=== PATIENT | male | born 1970 | race Hispanic/Latino ===

== ENCOUNTER 2019-11-03 23:34 | Observation (INO) | payer SELFPAY ==
[2019-11-04] MEDS ORDERED: ASPIRIN 81 MG CHEWABLE TABLET ONE (00:01)
[2019-11-04] MEDS ORDERED: MAGNE/ALUM HYDROXD 30 ML UCUP ONE (00:02)
[2019-11-04] MEDS ORDERED: LIDOCAINE VISCOUS 2% SOLN 15 ML UDC ONE (00:02)
[2019-11-04] MEDS ORDERED: PANTOPRAZOLE 40 MG INJ ONE (00:02)
[2019-11-04 00:04] LABS: Absolute Lymphocytes (CBC) 0.8 K/uL (0.7-4.9); Basophils % 0.5 % (0-1.3); Lymphocytes % 10.9 % (15.3-44.8); RBC Red Blood Cell Count 5.16 M/uL (4.33-5.43)
[2019-11-04 00:16] LABS: Protime INR 1.07
[2019-11-04 00:28] LABS: ALT/SGPT 63 U/L (12-78); AST/SGOT 31 U/L (15-37); Albumin 3.8 g/dL (3.4-5.0); Alkaline Phosphatase 160 U/L (45-117); BUN Blood Urea Nitrogen 12 mg/dL (7-18); Bicarbonate 29 mmol/L (21-32); Bilirubin Direct < 0.1 mg/dL (0-0.2); Bilirubin Total 0.4 mg/dL (0.2-1.0); Glucose Level 125 mg/dL (74-106); Magnesium 2.1 mg/dL (1.8-2.4); NT PRO-BNP 24 pg/mL (<125); Potassium 3.6 mmol/L (3.5-5.1); Protein, Total 7.8 g/dL (6.4-8.2); Sodium Level 137 mmol/L (136-145); Troponin (Emerg Dept Use Only) < 0.02 ng/mL (0.0-0.045)
--- NOTE | 2019-11-04 00:42 | EDPHYS ---
Physician Documentation [facility] Name: Trung De Age: 49 yrs Sex: Male : 1970 Arrival Date: 11/03/2019 Time: 23:36 Bed 19 Private MD: ED Physician Steven Ward HPI: 11/03 23:50 This 49 yrs old Male presents to ER via Unassigned with complaints of Chest silvia Pain. 23:50 The patient or guardian reports chest pain that is located primarily in the substernal silvia area. Onset: just prior to arrival. The pain does not radiate. Associated signs and symptoms: The patient has no apparent associated signs or symptoms. The chest pain is described as burning, a pressure. Severity of pain: At its worst the pain was mild in the emergency department the pain is unchanged. The patient has experienced similar episodes in the past, several times. Historical: - Allergies: 23:58 hydrocodone; lp1 - Home Meds: 23:58 None [Active]; lp1 - PMHx: 23:58 Hyperlipidemia; Hypothyroidism; lp1 - PSHx: 23:58 None; lp1 - Immunization history:: Adult Immunizations up to date. - Coronavirus screen:: The patient has NOT traveled to [place], [place], or [place] in the past 14 days. The patient has NOT had contact with known/suspected case of Coronavirus?. - Family history:: not pertinent. - Social history:: Smoking status: Patient denies any tobacco usage or history of. - Ebola Screening: : No symptoms or risks identified at this time. ROS: 23:50 Constitutional: Negative for fever, chills, and weight loss, Eyes: Negative for injury, silvia pain, redness, and discharge, ENT: Negative for injury, pain, and discharge, Neck: Negative for injury, pain, and swelling, Respiratory: Negative for shortness of breath, cough, wheezing, and pleuritic chest pain, Back: Negative for injury and pain, : Negative for injury, bleeding, discharge, and swelling, MS/Extremity: Negative for injury and deformity, Skin: Negative for injury, rash, and discoloration, Neuro: Negative for headache, weakness, numbness, tingling, and seizure, Psych: Negative for depression, anxiety, suicide ideation, homicidal ideation, and hallucinations, Allergy/Immunology: Negative for hives, rash, and allergies, Endocrine: Negative for neck swelling, polydipsia, polyuria, polyphagia, and marked weight changes, Hematologic/Lymphatic: Negative for swollen nodes, abnormal bleeding, and unusual bruising. 23:50 Cardiovascular: Positive for chest pain, of the chest. Exam: 23:52 Constitutional: This is a well developed, well nourished patient who is awake, alert, silvia and in no acute distress. Head/Face: Normocephalic, atraumatic. Eyes: Pupils equal round and reactive to light, extra-ocular motions intact. Lids and lashes normal. Conjunctiva and sclera are non-icteric and not injected. Cornea within normal limits. Periorbital areas with no swelling, redness, or edema. ENT: Nares patent. No nasal discharge, no septal abnormalities noted. Tympanic membranes are normal and external auditory canals are clear. Oropharynx with no redness, swelling, or masses, exudates, or evidence of obstruction, uvula midline. Mucous membranes moist. Neck: Trachea midline, no thyromegaly or masses palpated, and no cervical lymphadenopathy. Supple, full range of motion without nuchal rigidity, or vertebral point tenderness. No Meningismus. Chest/axilla: Normal chest wall appearance and motion. Nontender with no deformity. No lesions are appreciated. Cardiovascular: Regular rate and rhythm with a normal S1 and S2. No gallops, murmurs, or rubs. Normal PMI, no JVD. No pulse deficits. Respiratory: Lungs have equal breath sounds bilaterally, clear to auscultation and percussion. No rales, rhonchi or wheezes noted. No increased work of breathing, no retractions or nasal flaring. Abdomen/GI: Soft, non-tender, with normal bowel sounds. No distension or tympany. No guarding or rebound. No evidence of tenderness throughout. Back: No spinal tenderness. No costovertebral tenderness. Full range of motion. Male : Normal genitalia with no discharge or lesions. Skin: Warm, dry with normal turgor. Normal color with no rashes, no lesions, and no evidence of cellulitis. MS/ Extremity: Pulses equal, no cyanosis. Neurovascular intact. Full, normal range of motion. Neuro: Awake and alert, GCS 15, oriented to person, place, time, and situation. Cranial nerves II-XII grossly intact. Motor strength 5/5 in all extremities. Sensory grossly intact. Cerebellar exam normal. Normal gait. Psych: Awake, alert, with orientation to person, place and time. Behavior, mood, and affect are within normal limits. 23:52 Musculoskeletal/extremity: DVT Exam: No signs of deep vein thrombosis. no pain, no silvia swelling, no tenderness, negative Homans' sign noted on exam, no appreciated bluish discoloration, no erythema, no increased warmth. Vital Signs: 23:56 BP 134 / 92; Pulse 107; Resp 20; Temp 98.4(O); Pulse Ox 98% on R/A; Weight 86.18 kg lp1 (R); Height 5 ft. 8 in. (172.72 cm); Pain 9/10; 11/04 01:00 BP 122 / 89; Pulse 98; Resp 18; Pulse Ox 96% ; wh 02:15 BP 108 / 79; Pulse 86; Resp 18; Pulse Ox 94% ; wh 11/03 23:56 Body Mass Index 28.89 (86.18 kg, 172.72 cm) lp1 MDM: 11/03 23:38 Patient medically screened. [facility] 23:52 Data reviewed: vital signs, nurses notes, lab test result(s), EKG, radiologic studies. [facility] 11/03 23:38 Order name: Basic Metabolic Panel [facility] 11/03 23:38 Order name: CBC with Diff [facility] 11/03 23:38 Order name: LFT's [facility] 11/03 23:38 Order name: Magnesium [facility] 11/03 23:38 Order name: NT PRO-BNP [facility] 11/03 23:38 Order name: PT-INR [facility] 11/03 23:38 Order name: Troponin (emerg Dept Use Only) [facility] 11/03 23:50 Order name: Lipase [facility] 11/04 00:13 Order name: CBC with Automated Diff; Complete Time: 00:19 EDMS 11/04 00:24 Order name: Protime (+INR); Complete Time: 00:36 EDMS 11/04 00:28 Order name: Lipase; Complete Time: 00:36 EDMS 11/04 00:29 Order name: Basic Metabolic Panel; Complete Time: 00:36 EDMS 11/04 00:29 Order name: Liver (Hepatic) Function; Complete Time: 00:36 EDMS 11/04 00:29 Order name: Troponin (Emerg Dept Use Only); Complete Time: 00:36 EDMS 11/03 23:38 Order name: XRAY Chest (1 view) [facility] 11/03 23:38 Order name: EKG; Complete Time: 23:39 [facility] 11/03 23:38 Order name: Cardiac monitoring; Complete Time: 23:58 [facility] 11/03 23:38 Order name: EKG - Nurse/Tech; Complete Time: 23:58 [facility] 11/03 23:38 Order name: IV Saline Lock; Complete Time: 23:58 [facility] 11/03 23:38 Order name: Labs collected and sent; Complete Time: 23:58 [facility] 11/03 23:38 Order name: O2 Per Protocol; Complete Time: 23:58 [facility] 11/03 23:38 Order name: O2 Sat Monitoring; Complete Time: 23:58 [facility] 11/04 00:29 Order name: NT PRO-BNP; Complete Time: 00:36 EDMS 11/04 00:29 Order name: Magnesium; Complete Time: 00:36 EDMS Administered Medications: 11/04 00:00 Drug: Aspirin Chewable Tablet 324 mg Route: PO; 02:32 Follow up: Response: No adverse reaction 00:03 Drug: ProTONIX 40 mg Route: IVP; Site: right antecubital; 02:32 Follow up: Response: No adverse reaction 00:05 Drug: GI Cocktail without - (Maalox Suspension 30 ml, Lidocaine Liquid 2 % 15 wh ml) Route: PO; 02:32 Follow up: Response: No adverse reaction Disposition: 11/04/19 00:40 Hospitalization ordered by Bharat Gil for Observation. Preliminary diagnosis are Functional dyspepsia, Other chest pain, Essential (primary) hypertension. - Bed requested for Telemetry/MedSurg (observation). - Status is Observation. - Condition is Stable. - Problem is new. - Symptoms have improved. Signatures: Dispatcher [employer] EDMS Steven Ward MD MD cha Pena, Laura, RN RN lp1 Sylvia Horowitz RN RN Edwina Woods Corrections: (The following items were deleted from the chart) 01:56 00:40 Hospitalization Ordered by Bharat Gil for Observation. Preliminary diagnosis cg is Functional dyspepsia; Other chest pain; Essential (primary) hypertension. Bed requested for Telemetry/MedSurg (observation). Status is Observation. Condition is Stable. Problem is new. Symptoms have improved. silvia 02:38 01:56 11/04/2019 00:40 Hospitalization Ordered by Bharat Gil for Observation. wh Preliminary diagnosis is Functional dyspepsia; Other chest pain; Essential (primary) hypertension. Bed requested for Telemetry/MedSurg (observation). Status is Observation. Condition is Stable. Problem is new. Symptoms have improved. cg
--- NOTE | 2019-11-04 00:42 | ER ---
Nurse's Notes [facility] Name: Trung De Age: 49 yrs Sex: Male : 1970 Arrival Date: 11/03/2019 Time: 23:36 Bed 19 Private MD: Diagnosis: Functional dyspepsia;Other chest pain;Essential (primary) hypertension Presentation: 11/03 23:55 Presenting complaint: Patient states: Chest pain that began this morning about 0530, lp1 comes and goes; states abdominal pain radiating to chest. Transition of care: patient was not received from another setting of care. Onset of symptoms was November 03, 2019. Risk Assessment: Do you want to hurt yourself or someone else? Patient reports no desire to harm self or others. Initial Sepsis Screen: Does the patient meet any 2 criteria? No. Patient's initial sepsis screen is negative. Does the patient have a suspected source of infection? No. Patient's initial sepsis screen is negative. Care prior to arrival: None. 23:55 Method Of Arrival: Ambulatory lp1 23:55 Acuity: DIVINE 3 lp1 Historical: - Allergies: 23:58 hydrocodone; lp1 - Home Meds: 23:58 None [Active]; lp1 - PMHx: 23:58 Hyperlipidemia; Hypothyroidism; lp1 - PSHx: 23:58 None; lp1 - Immunization history:: Adult Immunizations up to date. - Coronavirus screen:: The patient has NOT traveled to [place], [place], or [place] in the past 14 days. The patient has NOT had contact with known/suspected case of Coronavirus?. - Family history:: not pertinent. - Social history:: Smoking status: Patient denies any tobacco usage or history of. - Ebola Screening: : No symptoms or risks identified at this time. Screenin:56 Abuse screen: Denies threats or abuse. Denies injuries from another. Nutritional lp1 screening: No deficits noted. Tuberculosis screening: No symptoms or risk factors identified. Fall Risk None identified. Assessment: 11/04 00:05 General: Appears in no apparent distress. Behavior is calm, cooperative, appropriate wh for age. Pain: Complains of pain in abdomen Pain radiates to chest Pain currently is 8 out of 10 on a pain scale. Quality of pain is described as burning, Pain began 1 day ago. Neuro: Level of Consciousness is awake, alert, obeys commands, Oriented to person, place, time, situation, Appropriate for age. Cardiovascular: Heart tones S1 S2. Respiratory: Airway is patent Respiratory effort is even, unlabored, Respiratory pattern is regular, symmetrical, Breath sounds are clear bilaterally. GI: Abdomen is flat, non-distended, Abd is soft and non tender X 4 quads. : No signs and/or symptoms were reported regarding the genitourinary system. EENT: No signs and/or symptoms were reported regarding the EENT system. Derm: Skin is intact, is healthy with good turgor, Skin is pink, warm \T\ dry. normal. Musculoskeletal: Circulation, motion, and sensation intact. 01:10 Reassessment: Patient appears in no apparent distress at this time. No changes from previously documented assessment. Patient and/or family updated on plan of care and expected duration. Pain level reassessed. Patient is alert, oriented x 3, equal unlabored respirations, skin warm/dry/pink. 02:26 Reassessment: Patient appears in no apparent distress at this time. No changes from previously documented assessment. Patient and/or family updated on plan of care and expected duration. Pain level reassessed. Patient is alert, oriented x 3, equal unlabored respirations, skin warm/dry/pink. Patient states feeling better. Patient states symptoms have improved. Vital Signs: 11/03 23:56 BP 134 / 92; Pulse 107; Resp 20; Temp 98.4(O); Pulse Ox 98% on R/A; Weight 86.18 kg lp1 (R); Height 5 ft. 8 in. (172.72 cm); Pain 9/10; 0207 01:00 BP 122 / 89; Pulse 98; Resp 18; Pulse Ox 96% ; 02:15 BP 108 / 79; Pulse 86; Resp 18; Pulse Ox 94% ; 11/03 23:56 Body Mass Index 28.89 (86.18 kg, 172.72 cm) lp1 ED Course: 11/03 23:36 Patient arrived in ED. jg7 23:38 Steven Ward MD is Attending Physician. silvia 23:47 Edwina Woods is Primary Nurse. 23:47 Patient has correct armband on for positive identification. Placed in gown. Bed in low jp3 position. Call light in reach. Side rails up X 1. Side rails up X2. Warm blanket given. Verbal reassurance given. soil tester on. Pulse ox on. NIBP on. 23:47 EKG done, by ED staff, reviewed by Steven Ward MD. Patient maintains SpO2 saturation jp3 greater than 95% on room air. 23:50 Initial lab(s) drawn, by nc, sent to lab. Inserted saline lock: 20 gauge in right lp1 antecubital area, using aseptic technique. Blood collected. 23:56 Triage completed. lp1 23:58 Arm band placed on. lp1 02/07 00:39 Bharat Gil is Hospitalizing Provider. [facility] 02:29 No provider procedures requiring assistance completed. Patient admitted, IV remains in place. Administered Medications: 00:00 Drug: Aspirin Chewable Tablet 324 mg Route: PO; 02:32 Follow up: Response: No adverse reaction 00:03 Drug: ProTONIX 40 mg Route: IVP; Site: right antecubital; 02:32 Follow up: Response: No adverse reaction 00:05 Drug: GI Cocktail without - (Maalox Suspension 30 ml, Lidocaine Liquid 2 % 15 wh ml) Route: PO; 02:32 Follow up: Response: No adverse reaction Outcome: 00:40 Decision to Hospitalize by Provider. [facility] 02:29 Admitted to [facility] accompanied by [facility], via wheelchair, room 408, with chart, Report called to Danuta Bermudez 02:29 Condition: stable 02:29 Instructed on the need for admit. 02:38 Patient left the ED. Signatures: Steven Ward MD MD cha Pena, Laura, RN RN lp1 Edwina Woods Chandan Moore jp3 Sadie Moodyg7
--- NOTE | 2019-11-04 01:32 | P.HP ---
Certification for Inpatient Patient admitted to: Observation With expected LOS: <2 Midnights Practitioner: I am a practitioner with admitting privileges, knowledge of patient current condition, hospital course, and medical plan of care. Services: Services provided to patient in accordance with Admission requirements found in Title 42 Section 412.3 of the Code of Federal Regulations Patient History Date of Service: 11/04/19 Reason for admission: Epigastric pain and chest pain History of Present Illness: 49-year-old Mosotho-speaking gentleman with a history of hypercholesteremia and hypothyroidism presents to the emergency department with a complaint of epigastric pain of onset yesterday, maximum intensity 8/10, intermittent, squeezing and pressure like sensation, worse with movement, partially and transiently relieved with drinking water and GI cocktail given in the ED. Patient states he has had this type pain for about 5 years but states this time the pain is much severe with no relieving factors. His initial troponin in the ED is negative. EKG demonstrates sinus rhythm, no ischemic changes. Chest x-ray shows no acute finding. Patient is placed under observation for ACS rule out. Allergies hydrocodone Allergy (Verified 11/04/19 02:57) Shortness of breath; dizziness Home Medications: Thyroid Complex Glandular Supplement With Herbs 1 cap PO DAILY 11/04/19 - Past Medical/Surgical History -: Hypercholesteremia -: Hypothyroidism - Family History Mother -: Heart disease, Stroke Father -: Other (see notes) Notes: arthritis - Social History Smoking Status: Never smoker Alcohol use: No CD- Drugs: No Place of Residence: Home Review of Systems Other: General: No fever, no malaise, no unintentional weight loss. Eyes: No eye discharge, Respiratory: No cough, no shortness of breath. GI: No abdominal pain, no nausea no vomit, no constipation, no diarrhea. Genitourinary: No dysuria, no urinary frequency, no incontinence, no hematuria. Musculoskeletal: No joint pains, or joint swelling, no gait instability. Neurology: No headache, no asymmetric weakness, no problem with swallowing. Except as documented, all other systems reviewed and negative. Physical Examination - Physical Exam General: Alert, In no apparent distress, Oriented x3 HEENT: Normocephalic, Mucous membr. moist/pink Neck: Supple, JVD not distended Respiratory: Clear to auscultation bilaterally, Normal air movement Cardiovascular: No edema, Normal S1 S2, Other (Tachycardia) Capillary refill: <2 Seconds Gastrointestinal: Normal bowel sounds, Soft and benign, Non-distended, No tenderness Musculoskeletal: No swelling, No erythema Integumentary: No rashes, No tenderness/swelling Neurological: Normal speech, Normal strength at 5/5 x4 extr - Studies Laboratory Data (last 24 hrs) 11/03/19 23:50: Lipase 100 11/03/19 23:50: PT 12.6 H, INR 1.07 11/03/19 23:50: WBC 7.5, Hgb 15.1, Hct 45.0, Plt Count 233 11/03/19 23:50: Sodium 137, Potassium 3.6, BUN 12, Creatinine 1.04, Glucose 125 H, Magnesium 2.1, Total Bilirubin 0.4, AST 31, ALT 63, Alkaline Phosphatase 160 H Assessment and Plan - Problems (Diagnosis) (1) Chest pain Current Visit: Yes Status: Acute (2) GERD (gastroesophageal reflux disease) Current Visit: Yes Status: Acute (3) Hypothyroidism Current Visit: Yes Status: Acute (4) Hypercholesterolemia Current Visit: Yes Status: Acute - Plan Place under observation. Telemetry Trend troponin Nuclear stress test Protonix b.i.d. Check lipid profile Statins will be ordered based on lipid profile result. Patient states his Lipitor was just discontinued last month. GI followup as outpatient. - Advance Directives Does patient have a Living Will: No Does patient have a Durable POA for Healthcare: No
[2019-11-04] MEDS ORDERED: ACETAMINOPHEN 500 MG TAB PO PRN (02:42)
[2019-11-04] MEDS ORDERED: NITROGLYCERIN 0.4 MG/TAB SL PRN ×2 (02:42→02:50)
[2019-11-04] MEDS ORDERED: MORPHINE 4 MG/ML SYR IV PRN (02:42)
[2019-11-04 03:58] VITALS: BMI 28.9
[2019-11-04 05:02] LABS: HDL Cholesterol 50 mg/dL (40-60); LDL Cholesterol, Calculated 115 (<130); Troponin I < 0.02 ng/mL (0.0-0.045)
[2019-11-04] MEDS ORDERED: PANTOPRAZOLE 40MG TABLET PO SCH (07:30)
[2019-11-04] MEDS ORDERED: REGADENOSON 0.4 MG/5 ML SYR IV ONE (07:40)
[2019-11-04] MEDS ORDERED: ENOXAPARIN 40 MG/0.4 ML SQ SCH (09:00)
[2019-11-04 09:02] VITALS: O2SAT 96
--- NOTE | 2019-11-04 09:48 | RAD REPORT ---
EXAM DESCRIPTION: RAD - Chest Single View - 11/04/2019 12:03 am CLINICAL HISTORY: CHEST PAIN COMPARISON: CHEST SINGLE VIEW dated 09/26/2015; CHEST SINGLE VIEW dated 04/05/2014 TECHNIQUE: AP portable chest image was obtained 11/04/2019 12:03 am . FINDINGS: Lung volumes are reduced from comparison studies. This accentuates the baseline interstiti al pattern. No acute lung parenchymal process seen. Heart and vasculature are normal. No measurable p leural effusion and no pneumothorax. No acute bony abnormality seen. No acute aortic findings suspect ed. IMPRESSION: No acute cardiopulmonary process.
--- NOTE | 2019-11-04 11:15 | RAD REPORT ---
EXAM DESCRIPTION: NM - Rest Stress Cardiac Imaging - 11/04/2019 10:50 am CLINICAL HISTORY: Chest pain COMPARISON: None. TECHNIQUE: The patient was administered 10.9 mCi of Tc 99m Sestamibi prior to resting SPECT imaging of the heart. The patient was then administered 31.3 mCi of Tc 99m Sestamibi following exercise or ph armacologic stress. Multiplanar SPECT images were reviewed. FINDINGS: The end diastolic volume is 80 ml, the end systolic volume is 35 ml, and the ejection frac tion is 57 %. Physiologic distribution of the radiopharmaceutical through the myocardium is noted. No stress induce d ischemic defect is seen to suggest stress induced ischemia. No fixed defect is seen to suggest hibe rnating myocardium or scarred myocardium. Minimal fixed decrease in activity along the inferolateral wall of the base is believed to be attenuation artifact. IMPRESSION: No stress induced ischemia or other suspicious findings. Ventricular volumes and ejection fraction are normal range.
--- NOTE | 2019-11-04 11:36 | P.DS ---
Admission Date: 11/04/19 Discharge Date: 11/04/19 Disposition: ROUTINE DISCHARGE Discharge Condition: GOOD Reason for Admission: Epigastric pain and chest pain Brief History of Present Illness: History of Present Illness: 49-year-old Croatian-speaking gentleman with a history of hypercholesteremia and hypothyroidism presents to the emergency department with a complaint of epigastric pain of onset yesterday, maximum intensity 8/10, intermittent, squeezing and pressure like sensation, worse with movement, partially and transiently relieved with drinking water and GI cocktail given in the ED. Patient states he has had this type pain for about 5 years but states this time the pain is much severe with no relieving factors. His initial troponin in the ED is negative. EKG demonstrates sinus rhythm, no ischemic changes. Chest x-ray shows no acute finding. Patient is placed under observation for ACS rule out. Hospital Course: Patient with history of hypothyroidism admitted for atypical chest pain. On admission EKG and initial cardiac enzymes were negative. He was placed on telemetry under observation. There were no telemetry EKG changes. Serial set of cardiac enzyme remained negative. He underwent MANPREET nuclear medicine stress test with reported EF of 57% and no reversible ischemic changes. Patient's chest pain remained free. His lipid panel was borderline with cholesterol 207. Lifestyle modification changes was advice. Patient will be discharged home on PPI and recommended to follow up with his primary in 1 week. Vital Signs/Physical Exam: Temp Pulse Resp BP Pulse Ox 98.2 F 72 18 96/59 L 98 11/04/19 08:00 11/04/19 08:00 11/04/19 08:00 11/04/19 08:00 11/04/19 08:00 General: Alert, Oriented x3 HEENT: Atraumatic, Normocephalic Neck: Supple, 2+ carotid pulse no bruit Respiratory: Clear to auscultation bilaterally, Normal air movement Cardiovascular: No edema, Normal pulses, Regular rate/rhythm, Normal S1 S2 Gastrointestinal: Normal bowel sounds, Soft and benign, Non-distended Musculoskeletal: No clubbing, No swelling Integumentary: No rashes, No breakdown Laboratory Data at Discharge: WBC 7.5 K/uL (4.3-10.9) 11/03/19 23:50 Hgb 15.1 g/dL (13.6-17.9) 11/03/19 23:50 Hct 45.0 % (39.6-49.0) 11/03/19 23:50 Plt Count 233 K/uL (152-406) 11/03/19 23:50 PT 12.6 SECONDS (9.5-12.5) H 11/03/19 23:50 INR 1.07 11/03/19 23:50 Sodium 137 mmol/L (136-145) 11/03/19 23:50 Potassium 3.6 mmol/L (3.5-5.1) 11/03/19 23:50 BUN 12 mg/dL (7-18) 11/03/19 23:50 Creatinine 1.04 mg/dL (0.55-1.3) 11/03/19 23:50 Glucose 125 mg/dL (74-106) H 11/03/19 23:50 Magnesium 2.1 mg/dL (1.8-2.4) 11/03/19 23:50 Total Bilirubin 0.4 mg/dL (0.2-1.0) 11/03/19 23:50 AST 31 U/L (15-37) 11/03/19 23:50 ALT 63 U/L (12-78) 11/03/19 23:50 Alkaline Phosphatase 160 U/L (45-117) H 11/03/19 23:50 Troponin I < 0.02 ng/mL (0.0-0.045) 11/04/19 07:59 Triglycerides 210 mg/dL (<150) H 11/04/19 03:52 Cholesterol 207 mg/dL (<200) H 11/04/19 03:52 HDL Cholesterol 50 mg/dL (40-60) 11/04/19 03:52 Cholesterol/HDL Ratio 4.14 11/04/19 03:52 Lipase 100 U/L (73-393) 11/03/19 23:50 Home Medications: Pantoprazole [Protonix Tab*] 40 mg PO DAILY #30 tab 11/04/19 Thyroid Complex Glandular Supplement With Herbs 1 cap PO DAILY 11/04/19 New Medications: Pantoprazole [Protonix Tab*] 40 mg PO DAILY #30 tab Patient Discharge Instructions: follow with PCP in 1 week Diet: Regular Activity: Ad nadya Time spent managing pt's care (in minutes): 35
[2019-11-04 12:08] VITALS: BP 108/62; TEMP 97.8
--- NOTE | 2019-11-04 13:59 | TREADPHA ---
DX: CHEST PAIN Date of Study: 11/04/2019 Ht: 5 8 Wt: 190 lb 1.6 oz Consulting Physician: YUKI MEDICATIONS: TYLENOL, LOVENOX, NITROSTAT, PROTONIX, HIGH CHOLESTEROL MEDICATION, THYROID MEDICATION. HISTORY: 49 YEAR OLD MALE ADMITTED FOR CHEST PAIN. PATIENT DENIES PAIN AT TIME OF TESTING. PHYSICIAL EXAMINATION: RESTING B.P.: 148/88 RESTING H.R.: 82 RESTING EKG: NORMAL PROTOCOL: PHARMACOLOGIC EXERCISE TIME: 3:30 B.P. AT PEAK STRESS: 125/78 IMPRESSION: LEXISCAN STRESS PERFORMED. CARDIOLITE INJECTED PER PROTOCOL. NO SUPRAVENTRICULAR TACHYCARDIA, NO VENTRICULAR TACHYCARDIA, NO ARRHYTHMIA NOTED. PATIENT DENIED CHEST PAIN. PATIENT TOLERATED WELL. PLEASE SEE NUCLEAR MEDICINE REPORT. NON-DIAGNOSTIC ELECTROCARDIOGRAM WITH LEXISCAN STRESS.
--- NOTE | 2019-11-04 15:09 | EKG ---
Test Date: 2019-11-03 Test Time: 23:41:42 Tooth Inspector: DEV MEASUREMENT RESULTS: Intervals: Rate: 101 IL: 144 QRSD: 102 QT: 334 QTc: 433 [place]: P: 53 [place]: 144 QRS: 60 T: 14 INTERPRETIVE STATEMENTS: Sinus tachycardia Otherwise normal ECG Compared to ECG 09/26/2015 08:51:27 Sinus rhythm no longer present Electronically Signed On 11-04-19 15:07:47 PILOT TEACHER by José Miguel Elise
== END 2019-11-04 13:17 | disposition home or self-care (01) ==
LOC: ER 23:34 → ERHOLD 11-04 02:02 → 4TH 11-04 02:25
PROVIDERS: ADMIT Internal Medicine; ATTEND Internal Medicine
DX: R07.89 Other chest pain (principal); E78.00 Pure hypercholesterolemia, unspecified; E03.9 Hypothyroidism, unspecified; K21.9 Gastro-esophageal reflux disease without esophagitis
CPT/HCPCS: 36415; 71045; 78452; 80048; 80061; 80076; 83690; 83735; 83880; 84484; 85025; 85610; 93005; 93017; 94760; 96374; 99285; A9500; G0378; J1650; J2785

== ENCOUNTER 2019-11-16 04:03 | Inpatient (IN) | payer SELFPAY ==
[2019-11-16] MEDS ORDERED: NA CHLORIDE 0.9% 1,000 ML ONE ×2 (04:43→05:55)
[2019-11-16 04:51] LABS: Basophils % 0.2 % (0-1.3); Hematocrit 44.7 % (39.6-49.0); Lymphocytes % 7.9 % (15.3-44.8); MPV 8.3 fL (7.6-11.3); RBC Red Blood Cell Count 5.18 M/uL (4.33-5.43)
[2019-11-16 05:09] LABS: Albumin 3.7 g/dL (3.4-5.0); Bilirubin Direct 0.2 mg/dL (0-0.2); Bilirubin Total 0.6 mg/dL (0.2-1.0); Potassium 3.8 mmol/L (3.5-5.1); Protein, Total 7.8 g/dL (6.4-8.2)
[2019-11-16 05:19] LABS: Blood Morphology Comment NOTED (NOT SEEN); Hypochromasia 1+; Platelet Estimate ADEQ
--- NOTE | 2019-11-16 05:35 | ER ---
Nurse's Notes [facility] Name: Trung De Age: 49 yrs Sex: Male : 1970 Arrival Date: 11/16/2019 Time: 04:06 Bed External Waiting Private MD: Diagnosis: Abdominal tenderness;Diarrhea, unspecified;Elevated white blood cell count;Bandemia;Left sided colitis-diffuse Presentation: 11/16 04:23 Presenting complaint: Patient states: C/O diarrhea and abdominal cramping that started wh yesterday, denies nausea and vomiting. Transition of care: patient was not received from another setting of care. Onset of symptoms was November 16, 2019. Risk Assessment: Do you want to hurt yourself or someone else? Patient reports no desire to harm self or others. Initial Sepsis Screen: Does the patient meet any 2 criteria? No. Patient's initial sepsis screen is negative. Does the patient have a suspected source of infection? Yes: Acute abdominal pain. Care prior to arrival: None. 04:23 Method Of Arrival: Ambulatory 04:23 Acuity: DIVINE 3 Historical: - Allergies: 04:25 HYDROCODONE; - Home Meds: 04:25 pantoprazole 40 mg oral TbEC 1 tab once daily [Active]; - PMHx: 04:25 Hyperlipidemia; Hypothyroidism; GERD; - Immunization history:: Adult Immunizations up to date. - Coronavirus screen:: The patient has NOT traveled to [place] in the past 14 days. - Social history:: Smoking status: Patient/guardian denies using. - Family history:: not pertinent. - Ebola Screening: : Patient negative for fever greater than or equal to 101.5 degrees Fahrenheit, and additional compatible Ebola Virus Disease symptoms Patient denies exposure to infectious person. Screenin:26 Abuse screen: Denies threats or abuse. Denies injuries from another. Nutritional screening: No deficits noted. Tuberculosis screening: No symptoms or risk factors identified. Fall Risk None identified. Assessment: 04:26 General: Appears in no apparent distress. Behavior is calm, cooperative, appropriate wh for age. Pain: Complains of pain in abdomen Pain does not radiate. Pain currently is 6 out of 10 on a pain scale. Quality of pain is described as crampy, Pain began 1 day ago. Is intermittent. Neuro: Level of Consciousness is awake, alert, obeys commands, Oriented to person, place, time, situation, Appropriate for age. Cardiovascular: Heart tones S1 S2. Respiratory: Airway is patent Respiratory effort is even, unlabored, Respiratory pattern is regular, symmetrical. GI: Abdomen is flat, non-distended, Bowel sounds present X 4 quads. Abd is soft and non tender X 4 quads. Reports diarrhea. : No signs and/or symptoms were reported regarding the genitourinary system. EENT: No signs and/or symptoms were reported regarding the EENT system. Derm: Skin is intact, is healthy with good turgor, Skin is pink, warm \T\ dry. normal. Musculoskeletal: Circulation, motion, and sensation intact. 05:00 Reassessment: Patient appears in no apparent distress at this time. No changes from previously documented assessment. Patient and/or family updated on plan of care and expected duration. Pain level reassessed. Patient is alert, oriented x 3, equal unlabored respirations, skin warm/dry/pink. 06:25 Reassessment: Patient appears in no apparent distress at this time. No changes from previously documented assessment. Patient and/or family updated on plan of care and expected duration. Pain level reassessed. Patient is alert, oriented x 3, equal unlabored respirations, skin warm/dry/pink. MD at bedside explaining POC need for admit. 07:28 Reassessment: Patient appears in no apparent distress at this time. No changes from [facility] previously documented assessment. Patient and/or family updated on plan of care and expected duration. Pain level reassessed. Patient is alert, oriented x 3, equal unlabored respirations, skin warm/dry/pink. 07:44 Reassessment: Pt's oral temp 102.7, ERD notified, see MAR for orders. Admitting doctor shara Walker notified of pt vital signs, no new orders given, no sepsis workup needed at this time. Dr. Walker will see pt on the floor. Vital Signs: 04:26 BP 120 / 86; Pulse 112; Resp 18; Temp 98.2; Pulse Ox 100% ; Weight 84.37 kg; Height 5 wh ft. 8 in. (172.72 cm); Pain 6/10; 05:00 BP 123 / 78; Pulse 108; Resp 18; Pulse Ox 99% on R/A; wh 06:45 BP 140 / 86; Pulse 101; Resp 18; Pulse Ox 98% ; 07:28 BP 136 / 95; Pulse 112; Resp 17; Temp 102.7(O); Pulse Ox 95% ; jl7 04:26 Body Mass Index 28.28 (84.37 kg, 172.72 cm) ED Course: 03:59 Steven Ward MD is Attending Physician. silvia 04:06 Patient arrived in ED. ag3 04:21 Edwina Woods is Primary Nurse. 04:24 Triage completed. 04:28 Arm band placed on right wrist. 04:28 Patient has correct armband on for positive identification. Bed in low position. Call light in reach. Side rails up X 1. Pulse ox on. NIBP on. 04:28 Inserted saline lock: 20 gauge in right antecubital area, using aseptic technique. Blood collected. 05:33 Bharat Gil is Hospitalizing Provider. [facility] 06:22 XRAY Chest (1 view) In Process Unspecified. EDMS 07:44 No provider procedures requiring assistance completed. Patient admitted, IV remains in jl7 place. intact, No redness/swelling at site. Administered Medications: 04:37 Drug: NS 0.9% 1000 ml Route: IV; Rate: 1 bolus; Site: right antecubital; 06:52 Follow up: Response: No adverse reaction; IV Status: Completed infusion 05:56 Drug: NS 0.9% 1000 ml Route: IV; Rate: 125 ml/hr; Site: right antecubital; 06:51 Follow up: Response: No adverse reaction; IV Status: Infusion continued upon admission 05:58 Drug: Flagyl 500 mg Volume: 100 ml; Route: IVPB; Rate: 200 ml/hr; Infused Over: 30 wh mins; Site: right antecubital; 06:51 Follow up: Response: No adverse reaction; IV Status: Completed infusion 06:00 Drug: Pepcid 20 mg Route: IVP; Site: right antecubital; 06:50 Follow up: Response: No adverse reaction 06:52 Drug: levofloxacin 500 mg Volume: 100 ml; Route: IVPB; Infused Over: 60 mins; Site: right antecubital; 07:40 Drug: Motrin 800 mg Route: PO; jl7 08:22 Not Given (pt moved to the floor): Rocephin 1 grams IV at per protocol once; Given slow jl7 IV push per pharmacy instructions Outcome: 05:35 Decision to Hospitalize by Provider. silvia 07:44 Admitted to Tele accompanied by tech, via wheelchair, room 222, with chart, Report shara called to MICHAEL Barajas 07:44 Condition: stable 07:44 Discharge instructions given to patient, Instructed on the need for admit, Demonstrated understanding of instructions. 08:22 Patient left the ED. shara Signatures: Dispatcher [employer] Steven Amanda MD MD cha Leal, Jahala, RN RN jl7 Edwina Woods Alice ag3
--- NOTE | 2019-11-16 05:36 | EDPHYS ---
Physician Documentation [facility] Name: Trung De Age: 49 yrs Sex: Male : 1970 Arrival Date: 11/16/2019 Time: 04:06 Bed External Waiting Private MD: DORINA Physician Steven Ward HPI: 11/16 05:30 This 49 yrs old Male presents to ER via Ambulatory with complaints of Diarrhea.[facility] 05:30 The patient presents to the emergency department with diarrhea, abdominal pain, of the silvia right upper quadrant, left upper quadrant, right lower quadrant and left lower quadrant. Onset: The symptoms/episode began/occurred 3 day(s) ago. Possible causes: unknown. The symptoms are aggravated by nothing. The symptoms are alleviated by nothing. Associated signs and symptoms: The patient has no apparent associated signs or symptoms. Severity of symptoms: At their worst the symptoms were mild moderate in the emergency department the symptoms are unchanged. The patient has not experienced similar symptoms in the past. Historical: - Allergies: 04:25 HYDROCODONE; - Home Meds: 04:25 pantoprazole 40 mg oral TbEC 1 tab once daily [Active]; - PMHx: 04:25 Hyperlipidemia; Hypothyroidism; GERD; - Immunization history:: Adult Immunizations up to date. - Coronavirus screen:: The patient has NOT traveled to [place] in the past 14 days. - Social history:: Smoking status: Patient/guardian denies using. - Family history:: not pertinent. - Ebola Screening: : Patient negative for fever greater than or equal to 101.5 degrees Fahrenheit, and additional compatible Ebola Virus Disease symptoms Patient denies exposure to infectious person. ROS: 05:30 Constitutional: Negative for fever, chills, and weight loss, Eyes: Negative for injury, silvia pain, redness, and discharge, ENT: Negative for injury, pain, and discharge, Neck: Negative for injury, pain, and swelling, Cardiovascular: Negative for chest pain, palpitations, and edema, Respiratory: Negative for shortness of breath, cough, wheezing, and pleuritic chest pain, Back: Negative for injury and pain, : Negative for injury, bleeding, discharge, and swelling, MS/Extremity: Negative for injury and deformity, Skin: Negative for injury, rash, and discoloration, Neuro: Negative for headache, weakness, numbness, tingling, and seizure, Psych: Negative for depression, anxiety, suicide ideation, homicidal ideation, and hallucinations, Allergy/Immunology: Negative for hives, rash, and allergies, Endocrine: Negative for neck swelling, polydipsia, polyuria, polyphagia, and marked weight changes, Hematologic/Lymphatic: Negative for swollen nodes, abnormal bleeding, and unusual bruising. 05:30 Abdomen/GI: Positive for abdominal pain, diarrhea, of the right upper quadrant, left upper quadrant, right lower quadrant and left lower quadrant. Exam: 05:30 Constitutional: This is a well developed, well nourished patient who is awake, alert, silvia and in no acute distress. Head/Face: Normocephalic, atraumatic. Eyes: Pupils equal round and reactive to light, extra-ocular motions intact. Lids and lashes normal. Conjunctiva and sclera are non-icteric and not injected. Cornea within normal limits. Periorbital areas with no swelling, redness, or edema. ENT: Nares patent. No nasal discharge, no septal abnormalities noted. Tympanic membranes are normal and external auditory canals are clear. Oropharynx with no redness, swelling, or masses, exudates, or evidence of obstruction, uvula midline. Mucous membranes moist. Neck: Trachea midline, no thyromegaly or masses palpated, and no cervical lymphadenopathy. Supple, full range of motion without nuchal rigidity, or vertebral point tenderness. No Meningismus. Chest/axilla: Normal chest wall appearance and motion. Nontender with no deformity. No lesions are appreciated. Cardiovascular: Regular rate and rhythm with a normal S1 and S2. No gallops, murmurs, or rubs. Normal PMI, no JVD. No pulse deficits. Respiratory: Lungs have equal breath sounds bilaterally, clear to auscultation and percussion. No rales, rhonchi or wheezes noted. No increased work of breathing, no retractions or nasal flaring. Back: No spinal tenderness. No costovertebral tenderness. Full range of motion. Male : Normal genitalia with no discharge or lesions. Skin: Warm, dry with normal turgor. Normal color with no rashes, no lesions, and no evidence of cellulitis. 05:30 Abdomen/GI: Inspection: abdomen appears normal, Bowel sounds: normal, Palpation: moderate abdominal tenderness, in all quadrants, Liver: no appreciated palpable abnormalities, Hernia: not appreciated. Vital Signs: 04:26 BP 120 / 86; Pulse 112; Resp 18; Temp 98.2; Pulse Ox 100% ; Weight 84.37 kg; Height 5 wh ft. 8 in. (172.72 cm); Pain 6/10; 05:00 BP 123 / 78; Pulse 108; Resp 18; Pulse Ox 99% on R/A; wh 06:45 BP 140 / 86; Pulse 101; Resp 18; Pulse Ox 98% ; wh 07:28 BP 136 / 95; Pulse 112; Resp 17; Temp 102.7(O); Pulse Ox 95% ; jl7 04:26 Body Mass Index 28.28 (84.37 kg, 172.72 cm) wh MDM: 04:00 Patient medically screened. [facility] 05:33 Data reviewed: vital signs, nurses notes, lab test result(s), EKG, radiologic studies, [facility] CT scan, plain films, ultrasound. 11/16 04:12 Order name: Basic Metabolic Panel [facility] 11/16 04:12 Order name: CBC with Diff; Complete Time: 05:26 [facility] 11/16 04:12 Order name: Creatinine for Radiology; Complete Time: 05:26 [facility] 11/16 04:12 Order name: Hepatic Function; Complete Time: 05:26 [facility] 11/16 04:12 Order name: Lipase; Complete Time: 05:26 [facility] 11/16 04:12 Order name: Occult Blood [facility] 11/16 04:12 Order name: Stool Culture [facility] 11/16 04:12 Order name: Fecal Leukocyte Stain [facility] 11/16 04:13 Order name: Basic Metabolic Panel; Complete Time: 05:26 [facility] 11/16 05:18 Order name: Manual Differential; Complete Time: 05:26 [facility] 11/16 05:30 Order name: Magnesium; Complete Time: 06:52 [facility] 11/16 05:30 Order name: NT PRO-BNP; Complete Time: 06:52 [facility] 11/16 05:30 Order name: PT-INR; Complete Time: 06:52 [facility] 11/16 05:30 Order name: Troponin (emerg Dept Use Only); Complete Time: 06:52 [facility] 11/16 04:12 Order name: IV Saline Lock; Complete Time: 04:37 [facility] 11/16 04:12 Order name: Labs collected and sent; Complete Time: 04:37 [facility] 11/16 05:30 Order name: CT Abd/Pelvis - IV Contrast Only [facility] 11/16 05:30 Order name: US Abdomen Limited [facility] 11/16 05:30 Order name: XRAY Chest (1 view) [facility] 11/16 05:30 Order name: EKG; Complete Time: 05:31 [facility] 11/16 05:30 Order name: Cardiac monitoring; Complete Time: 06:01 [facility] 11/16 05:30 Order name: EKG - Nurse/Tech; Complete Time: 06:01 [facility] 11/16 05:30 Order name: O2 Per Protocol; Complete Time: 06:02 [facility] 11/16 05:30 Order name: O2 Sat Monitoring; Complete Time: 06:02 [facility] Administered Medications: 04:37 Drug: NS 0.9% 1000 ml Route: IV; Rate: 1 bolus; Site: right antecubital; 06:52 Follow up: Response: No adverse reaction; IV Status: Completed infusion 05:56 Drug: NS 0.9% 1000 ml Route: IV; Rate: 125 ml/hr; Site: right antecubital; 06:51 Follow up: Response: No adverse reaction; IV Status: Infusion continued upon admission 05:58 Drug: Flagyl 500 mg Volume: 100 ml; Route: IVPB; Rate: 200 ml/hr; Infused Over: 30 wh mins; Site: right antecubital; 06:51 Follow up: Response: No adverse reaction; IV Status: Completed infusion 06:00 Drug: Pepcid 20 mg Route: IVP; Site: right antecubital; 06:50 Follow up: Response: No adverse reaction 06:52 Drug: levofloxacin 500 mg Volume: 100 ml; Route: IVPB; Infused Over: 60 mins; Site: right antecubital; 07:40 Drug: Motrin 800 mg Route: PO; jl7 08:22 Not Given (pt moved to the floor): Rocephin 1 grams IV at per protocol once; Given slow jl7 IV push per pharmacy instructions Disposition: 11/16/19 05:35 Hospitalization ordered by Bharat Gil for Inpatient Admission. Preliminary diagnosis are Abdominal tenderness, Diarrhea, unspecified, Elevated white blood cell count, Bandemia, Left sided colitis - diffuse. - Bed requested for Telemetry/MedSurg (Inpatient). - Status is Inpatient Admission. jl7 - Condition is Stable. - Problem is new. - Symptoms have improved. Signatures: Dispatcher [employer] EDMS Nella Hicks RN RN Steven Ward MD MD cha Leal, Jahala, RN RN [facility] Edwina Woods Corrections: (The following items were deleted from the chart) 05:36 05:35 Hospitalization Ordered by Bharat Gil for Inpatient Admission. Preliminary silvia diagnosis is Abdominal tenderness; Diarrhea, unspecified. Bed requested for Telemetry/MedSurg (Inpatient). Status is Inpatient Admission. Condition is Stable. Problem is new. Symptoms have improved. [facility] 06:33 05:36 11/16/2019 05:35 Hospitalization Ordered by [facility] for Inpatient mw Admission. Preliminary diagnosis is Abdominal tenderness; Diarrhea, unspecified; Elevated white blood cell count; Bandemia. Bed requested for Telemetry/MedSurg (Inpatient). Status is Inpatient Admission. Condition is Stable. Problem is new. Symptoms have improved. [facility] 07:39 06:33 11/16/2019 05:35 Hospitalization Ordered by [facility] for Inpatient [facility] Admission. Preliminary diagnosis is Abdominal tenderness; Diarrhea, unspecified; Elevated white blood cell count; Bandemia. Bed requested for Telemetry/MedSurg (Inpatient). Status is Inpatient Admission. Condition is Stable. Problem is new. Symptoms have improved. 08:22 07:39 11/16/2019 05:35 Hospitalization Ordered by [facility] for Inpatient [facility] Admission. Preliminary diagnosis is Abdominal tenderness; Diarrhea, unspecified; Elevated white blood cell count; Bandemia; Left sided colitis - diffuse. Bed requested for Telemetry/MedSurg (Inpatient). Status is Inpatient Admission. Condition is Stable. Problem is new. Symptoms have improved. silvia
[2019-11-16] MEDS ORDERED: Levofloxacin500mg IV 500 MG/100 ML BAG IV ONE (05:55)
[2019-11-16] MEDS ORDERED: FAMOTIDINE 20 MG/2 ML VIAL IV ONE (05:55)
[2019-11-16] MEDS ORDERED: METRONIDAZOLE 500mg IVPB 500 MG/100 ML BAG IV ONE (05:56)
[2019-11-16 06:12] LABS: Protime INR 1.18
--- NOTE | 2019-11-16 06:18 | P.HP ---
Certification for Inpatient Patient admitted to: Inpatient With expected LOS: >2 Midnights Practitioner: I am a practitioner with admitting privileges, knowledge of patient current condition, hospital course, and medical plan of care. Services: Services provided to patient in accordance with Admission requirements found in Title 42 Section 412.3 of the Code of Federal Regulations Patient History Date of Service: 11/16/19 Reason for admission: Diarrhea History of Present Illness: 49-year-old gentleman with a history of GERD presented to the emergency department with a complaint of multiple episodes of diarrhea and abdominal pain preceded by episodes of fever and chills. Patient was hospitalized about 2 weeks ago for persistent epigastric pain. Cardiac workup was done with nuclear stress test which was negative. Patient reports watery stools, no blood. He also described his pain as colicky and intermittent. No relieving factors. His liver enzymes are noted to be elevated, he has leukocytosis, tachycardia and meet criteria for sepsis. Patient is hospitalized for further evaluations and management of the diarrhea and elevated liver enzymes. Allergies hydrocodone Allergy (Verified 11/16/19 10:08) Shortness of breath; dizziness Home Medications: Pantoprazole [Protonix Tab*] 40 mg PO DAILY #30 tab 11/04/19 Thyroid Complex Glandular Supplement With Herbs 1 cap PO DAILY 11/04/19 - Past Medical/Surgical History Diabetic: No -: Hypercholesteremia -: Hypothyroidism -: left eye abscess I&D - Family History Mother -: Heart disease, Stroke Father -: Other (see notes) Notes: arthritis - Social History Alcohol use: No CD- Drugs: No Caffeine use: No Review of Systems Other: Except as documented, all other systems reviewed and negative. Physical Examination - Physical Exam General: Alert, In no apparent distress, Oriented x3 HEENT: Normocephalic, Mucous membr. moist/pink, Sclerae nonicteric Neck: Supple, JVD not distended Respiratory: Clear to auscultation bilaterally, Normal air movement Cardiovascular: No edema, Normal pulses, Normal S1 S2, No murmurs, Other ( Tachycardia) Capillary refill: <2 Seconds Gastrointestinal: Normal bowel sounds, Soft and benign, Non-distended, Tenderness (Mild mid abdomen tenderness.) Musculoskeletal: No swelling, No erythema Integumentary: No rashes, No erythema Neurological: Normal speech, Normal strength at 5/5 x4 extr, Cranial nerves 3- 12 intact - Studies Laboratory Data (last 24 hrs) 11/16/19 04:30: Creatinine 1.20 11/16/19 04:30: WBC 12.1 H D, Hgb 14.9, Hct 44.7, Plt Count 220 11/16/19 04:30: Sodium 136, Potassium 3.8, BUN 9, Creatinine 1.16, Glucose 137 H , Total Bilirubin 0.6, AST 172 H D, ALT 186 H D, Alkaline Phosphatase 162 H, Lipase 98 Microbiology Data (last 24 hrs): 11/16/19 04:12 Stool Stool Occult Blood (SHANTELLE) - Final SEO ENGINEER Assessment and Plan - Problems (Diagnosis) (1) Enteritis Current Visit: Yes Status: Acute (2) Elevated liver enzymes Current Visit: Yes Status: Acute (3) Hypothyroidism Current Visit: No Status: Chronic - Plan Admit to the medical floor Supportive measures with IV hydration. Start empiric IV Levaquin and Flagyl. Follow stool studies and stool culture. Obtain right upper quadrant sonogram. Monitor liver enzymes Checking lactic acid Obtain blood cultures. - Advance Directives Does patient have a Living Will: No Does patient have a Durable POA for Healthcare: No
[2019-11-16 06:19] LABS: Magnesium 1.8 mg/dL (1.8-2.4); NT PRO-BNP 28 pg/mL (<125); Troponin (Emerg Dept Use Only) < 0.02 ng/mL (0.0-0.045)
[2019-11-16] MEDS ORDERED: IBUPROFEN 400 MG TAB ONE (07:41)
[2019-11-16] MEDS ORDERED: NA CHLORIDE 0.9% 1,000 ML IV ONE (07:54)
[2019-11-16] MEDS ORDERED: ONDANSETRON 4 MG/2 ML VIAL IV PRN (08:22)
[2019-11-16] MEDS ORDERED: ACETAMINOPHEN 500 MG TAB PO PRN (08:22)
--- NOTE | 2019-11-16 08:23 | RAD REPORT ---
EXAM DESCRIPTION: US - Abdomen Exam Limited - 11/16/2019 7:08 am CLINICAL HISTORY: ABD PAIN COMPARISON: No comparisons FINDINGS: The gallbladder demonstrates no gallstones. No pericholecystic fluid or gallbladder wall t hickening. The common bile duct is normal measuring 3 mm. The liver demonstrates no findings of intrahepatic biliary dilatation. IMPRESSION: Unremarkable examination.
--- NOTE | 2019-11-16 09:04 | RAD REPORT ---
EXAM DESCRIPTION: RAD - Chest Single View - 11/16/2019 6:21 am CLINICAL HISTORY: ABDOMINAL DISTENTION Chest pain. COMPARISON: Chest Single View dated 11/03/2019; CHEST SINGLE VIEW dated 09/26/2015; CHEST SINGLE VIEW dated 04/05/2014 FINDINGS: Portable technique limits examination quality. The lungs are grossly clear. The heart is normal in size. No displaced fractures. IMPRESSION: No acute intrathoracic process suspected.
[2019-11-16 09:30] LABS: Urine Appearance CLEAR; Urine Bilirubin NEGATIVE (NEG); Urine Blood TRACE (NEG); Urine Color YELLOW; Urine Glucose NEGATIVE (NEG); Urine Protein NEGATIVE (NEG); Urine Specific Gravity >=1.030 (1.005-1.030); Urine Urobilinogen 0.2 mg/dL (0.2-1.0); Urine pH 6.5 (5.0-7.0)
[2019-11-16 09:32] LABS: Urine Microscopic Reflex ORDER UMIC
[2019-11-16] MEDS: ENOXAPARIN 40 MG/0.4 ML SQ SCH (09:52)
[2019-11-16] MEDS: D5 0.9 NS 1,000 ML IV SCH ×2 (09:52→17:07)
--- NOTE | 2019-11-16 10:19 | EKG ---
Test Date: 2019-11-16 Test Time: 06:15:19 Skip Hoist Engineer: JOESPH MEASUREMENT RESULTS: Intervals: Rate: 110 DE: 134 QRSD: 96 QT: 324 QTc: 438 [place]: P: 54 DE: 134 QRS: 59 T: 13 INTERPRETIVE STATEMENTS: Sinus tachycardia Otherwise normal ECG Compared to ECG 11/03/2019 23:41:42 No significant changes Electronically Signed On 11-16-19 10:18:56 PEER SPECIALIST by José Miguel Elise
[2019-11-16 10:24] VITALS: BMI 28.3
--- NOTE | 2019-11-16 10:28 | RAD REPORT ---
EXAM DESCRIPTION: Abdomen Pelvis W Contrast ADDENDUM #1 Corrected IMPRESSION: 1. Diffuse colitis from the cecum into the proximal sigmoid. No evidence of diverticular disease or p erforation. No abscess. 2. Mild fatty liver infiltration. 3.Multiple pulmonary nodules. Most severe: 3.0 mm solid pulmonary nodule detected on incomplete chest CT. No routine follow-up imaging is recommended. These guidelines do not apply to immunocompromised patients and patients with cancer. Follow up in pa tients with significant comorbidities as clinically warranted. For lung cancer screening, adhere to L navjot-RADS guidelines. Reference: Radiology. 2017; 284(1):228-43. Electronically signed by: Beryl Fletcher DO 11/16/2019 7:32 AM [employer]ILDLIFE VET[employer]IN[employer]IAN End of Addendum CT ABDOMEN AND PELVIS WITH CONTRAST. CLINICAL HISTORY: Diarrhea, abdominal cramping. COMPARISON: None. TECHNIQUE: Axial CT imaging of the abdomen and pelvis performed with intravenous contrast. Reformatt ed coronal and sagittal images reviewed. A dose reduction technique was utilized with automated exposure control according to patient size. FINDINGS: Mild bilateral lower lobe subpleural atelectasis. Heart is normal in size. There are two 3 mm nodules in the right middle lobe. There is no consolidation. Heart is normal in si ze. There is mild fatty liver infiltration. No liver mass or biliary dilatation. Normal gallbladder, sple en, pancreas, adrenal glands, and kidneys. Normal aorta and inferior vena cava caliber. No adenopathy . Mesenteric vessels are well-opacified. Normal stomach. The small bowel loops appear normal. The appendix is normal within the right hemipelv is. There is circumferential thickening of the colonic wall from the ascending colon to the proximal sigmoid. No obstruction. No free air. Slight pericolonic edema adjacent to the descending aorta. No ascites or free air. No mesenteric adenopathy. The bladder appears normal. Normal prostate. No pelvic free fluid. Prominent fat along the right sper matic cord. Normal lumbar lordosis. No subluxation. Intact bony pelvis. Normal hips. IMPRESSION: 1. Diffuse colitis from the cecum into the proximal sigmoid. No evidence of diverticular disease or perforation. No abscess. 2. Mild fatty liver infiltration. Electronically signed by: Beryl Fletcher DO 11/16/2019 7:29 AM [employer]IL[employer] VETERINARIAN Due to temporary technical issues with the PACS/Fluency reporting system, reports are being signed by the in house radiologist as a courtesy to ensure prompt reporting. The interpreting radiologist is f ully responsible for the content of the report.
[2019-11-16 10:46] LABS: Urine Bacteria <20 /HPF (NONE SEEN); Urine Culture Reflex Order NOT NEEDED; Urine RBC <5 /HPF (NONE SEEN)
[2019-11-16] MEDS: METRONIDAZOLE 500mg IVPB 500 MG/100 ML BAG IV SCH ×2 (12:30→17:05)
[2019-11-16] MEDS ORDERED: POTASSIUM CL SA 10 MEQ TAB PO ONE (16:00)
[2019-11-16] MEDS ORDERED: MAGNESIUM SULFATE 1 gm IVPB 1 GM/100 ML BAG IV ONE (16:00)
[2019-11-17] MEDS: METRONIDAZOLE 500mg IVPB 500 MG/100 ML BAG IV SCH ×3 (00:41→16:35)
[2019-11-17] MEDS: D5 0.9 NS 1,000 ML IV SCH ×2 (04:22→16:35)
[2019-11-17 05:37] LABS: Absolute Lymphocytes (CBC) 1.1 K/uL (0.7-4.9); Basophils % 0.5 % (0-1.3); Hematocrit 40.9 % (39.6-49.0); Lymphocytes % 16.2 % (15.3-44.8); MPV 8.4 fL (7.6-11.3); RBC Red Blood Cell Count 4.72 M/uL (4.33-5.43)
[2019-11-17] MEDS: Levofloxacin500mg IV 500 MG/100 ML BAG IV SCH (06:04)
[2019-11-17 06:10] LABS: Bilirubin Total 0.4 mg/dL (0.2-1.0); Magnesium 2.2 mg/dL (1.8-2.4); Phosphorus 2.1 mg/dL (2.5-4.9); Potassium 3.9 mmol/L (3.5-5.1); Protein, Total 6.6 g/dL (6.4-8.2)
[2019-11-17] MEDS ORDERED: POTASSIUM PHOS IN 0.9 % NACL 15 MMOL/250 ML BAG IV ONE (08:00)
[2019-11-17] MEDS: ENOXAPARIN 40 MG/0.4 ML SQ SCH (08:30)
--- NOTE | 2019-11-17 09:47 | P.PN ---
Subjective Date of Service: 11/17/19 Chief Complaint: Diarrhea Subjective: No new changes, Improving Review of Systems 10-point ROS is otherwise unremarkable Physical Examination - Vital Signs Temperature: 98.2 F Blood Pressure: 115/77 Pulse: 78 Respirations: 17 Pulse Ox (%): 99 - Physical Exam General: Alert, In no apparent distress HEENT: Atraumatic, Normocephalic Neck: Supple Respiratory: Clear to auscultation bilaterally, Normal air movement Cardiovascular: Normal pulses, Regular rate/rhythm Capillary refill: <2 Seconds Gastrointestinal: Soft and benign, Non-distended Musculoskeletal: No clubbing, No swelling Integumentary: No rashes Neurological: Normal speech, Normal strength at 5/5 x4 extr Lymphatics: No axilla or inguinal lymphadenopathy Urinary: Other (No bladder distention) External genitalia: Deferred Rectal: Deferred - Studies Microbiology Data (last 24 hrs): 11/16/19 09:16 Stool Fecal Leukocyte Stain - Final 11/16/19 09:16 Stool Occult Blood - Final Assessment & Plan - Problems (Diagnosis) (1) Elevated liver enzymes Current Visit: Yes Status: Acute (2) Enteritis Current Visit: Yes Status: Acute (3) Hypercholesterolemia Current Visit: No Status: Acute (4) Hypothyroidism Current Visit: No Status: Chronic Plan: Clinically better Frequency of diarrhea is better Supportive measures with IV hydration. On IV Levaquin and Flagyl. Right upper quadrant sonogram unremarkable Monitor liver enzymes serially Cultures negative so far Advance diet Possible DC In AM if afebrile and diarrhea is better . Discharge Plan: Home Plan to discharge in: 24 Hours Time Spent Managing Pts Care (In Minutes): 42
[2019-11-17 12:36] LABS: C.diff Antigen/Toxin Ag neg : Tox neg (NEG : NEG)
[2019-11-17 21:32] VITALS: O2SAT 97
[2019-11-18] MEDS: METRONIDAZOLE 500mg IVPB 500 MG/100 ML BAG IV SCH ×2 (01:04→08:58)
[2019-11-18] MEDS: D5 0.9 NS 1,000 ML IV SCH (05:06)
[2019-11-18] MEDS: Levofloxacin500mg IV 500 MG/100 ML BAG IV SCH (05:11)
[2019-11-18 06:01] LABS: BUN Blood Urea Nitrogen 7 mg/dL (7-18); Bicarbonate 27 mmol/L (21-32); Glucose Level 119 mg/dL (74-106); Phosphorus 2.9 mg/dL (2.5-4.9); Potassium 3.8 mmol/L (3.5-5.1); Sodium Level 142 mmol/L (136-145)
[2019-11-18] MEDS ORDERED: POTASSIUM CL SA 10 MEQ TAB PO ONE (07:33)
[2019-11-18 08:20] VITALS: BP 103/67; TEMP 97.2
[2019-11-18] MEDS: ENOXAPARIN 40 MG/0.4 ML SQ SCH (08:58)
--- NOTE | 2019-11-18 10:25 | P.DS ---
Admission Date: 11/16/19 Discharge Date: 11/18/19 Disposition: ROUTINE DISCHARGE Discharge Condition: GOOD Reason for Admission: Diarrhea - Problems (1) Elevated liver enzymes Status: Acute (2) Enteritis Status: Acute (3) Hypercholesterolemia Status: Acute (4) Hypothyroidism Status: Chronic Brief History of Present Illness: 49-year-old gentleman with a history of GERD presented to the emergency department with a complaint of multiple episodes of diarrhea and abdominal pain preceded by episodes of fever and chills. Patient was hospitalized about 2 weeks ago for persistent epigastric pain. Cardiac workup was done with nuclear stress test which was negative. Patient reports watery stools, no blood. He also described his pain as colicky and intermittent. No relieving factors. His liver enzymes are noted to be elevated, he has leukocytosis, tachycardia and meet criteria for sepsis. Patient is hospitalized for further evaluations and management of the diarrhea and elevated liver enzymes. Hospital Course: The patient was admitted and was started on IV Levaquin and Flagyl. Frequency of diarrhea is better Supportive measures with IV hydration. Right upper quadrant sonogram unremarkable Monitored liver enzymes serially and was trending down Cultures negative so far Advanced diet Possible DC In AM if afebrile and diarrhea is better The patient is being discharged home in a stable condition with advice to follow up with PCP in 1 week advice to recheck liver parameters in 1 week time Vital Signs/Physical Exam: Temp Pulse Resp BP Pulse Ox 97.2 F 65 18 103/67 97 11/18/19 08:00 11/18/19 08:00 11/18/19 08:00 11/18/19 08:00 11/18/19 08:00 General: Alert, In no apparent distress HEENT: Atraumatic, Normocephalic Neck: Supple Respiratory: Clear to auscultation bilaterally, Normal air movement Cardiovascular: No edema, Regular rate/rhythm Capillary refill: <2 Seconds Gastrointestinal: Soft and benign, W/out hepatosplenomegaly Musculoskeletal: No clubbing, No swelling Integumentary: No rashes Neurological: Normal gait, Normal speech, Normal strength at 5/5 x4 extr Lymphatics: No axilla or inguinal lymphadenopathy External genitalia: Deferred Laboratory Data at Discharge: WBC 6.8 K/uL (4.3-10.9) D 11/17/19 05:15 Hgb 13.7 g/dL (13.6-17.9) 11/17/19 05:15 Hct 40.9 % (39.6-49.0) 11/17/19 05:15 Plt Count 196 K/uL (152-406) 11/17/19 05:15 PT 13.8 SECONDS (9.5-12.5) H 11/16/19 05:45 INR 1.18 11/16/19 05:45 Sodium 142 mmol/L (136-145) 11/18/19 05:19 Potassium 3.8 mmol/L (3.5-5.1) 11/18/19 05:19 BUN 7 mg/dL (7-18) 11/18/19 05:19 Creatinine 0.86 mg/dL (0.55-1.3) 11/18/19 05:19 Glucose 119 mg/dL (74-106) H 11/18/19 05:19 Phosphorus 2.9 mg/dL (2.5-4.9) 11/18/19 05:19 Magnesium 2.2 mg/dL (1.8-2.4) 11/17/19 05:15 Total Bilirubin 0.4 mg/dL (0.2-1.0) 11/17/19 05:15 AST 63 U/L (15-37) H D 11/17/19 05:15 ALT 124 U/L (12-78) H 11/17/19 05:15 Alkaline Phosphatase 131 U/L (45-117) H 11/17/19 05:15 Lipase 98 U/L (73-393) 11/16/19 04:30 Home Medications: Pantoprazole [Protonix Tab*] 40 mg PO DAILY #30 tab 11/04/19 Thyroid Complex Glandular Supplement With Herbs 1 cap PO DAILY 11/04/19 Ciprofloxacin HCl [Cipro 500 MG Tablet] 500 mg PO BID #10 tab 11/18/19 metroNIDAZOLE [Flagyl] 500 mg PO Q8H 21 Days tablet 11/18/19 New Medications: Ciprofloxacin HCl [Cipro 500 MG Tablet] 500 mg PO BID #10 tab metroNIDAZOLE [Flagyl] 500 mg PO Q8H 21 Days tablet Time spent managing pt's care (in minutes): 39
== END 2019-11-18 11:40 | disposition home or self-care (01) | DRG 392 ==
LOC: ER 04:03 → ERHOLD 06:54 → 2ND 07:42 → OBSVTOIN 09:57 → 4TH 11-17 17:36
PROVIDERS: ADMIT Internal Medicine; ATTEND Family Medicine
DX: K52.9 Noninfective gastroenteritis and colitis, unspecified (principal); R74.8 Abnormal levels of other serum enzymes; E78.00 Pure hypercholesterolemia, unspecified; E03.9 Hypothyroidism, unspecified; K21.9 Gastro-esophageal reflux disease without esophagitis
CPT/HCPCS: 36415; 71045; 74177; 76705; 80048; 80053; 80076; 81003; 81015; 82274; 83605; 83690; 83735; 83880; 84100; 84484; 85025; 85610; 87040; 87045; 87046; 87324; 87449; 89055; 93005; 94760; 96361; 96365; 96375; 99285; G0378; J1650; J3475; J7030; J7042; Q9967

== ENCOUNTER 2021-03-09 03:58 | Emergency (ER) | payer SELFPAY ==
[2021-03-09] MEDS ORDERED: ONDANSETRON 4 MG/2 ML VIAL ONE (05:01)
[2021-03-09] MEDS ORDERED: NA CHLORIDE 0.9% 1,000 ML ONE (05:01)
[2021-03-09 05:07] LABS: Protime INR 1.03
[2021-03-09 05:17] LABS: Absolute Lymphocytes (CBC) 2.1 K/uL (0.7-4.9); Basophils % 0.6 % (0-1.3); Hematocrit 42.2 % (39.6-49.0); Lymphocytes % 27.6 % (15.3-44.8); MPV 8.4 fL (7.6-11.3); RBC Red Blood Cell Count 4.91 M/uL (4.33-5.43)
[2021-03-09 05:23] LABS: ALT/SGPT 46 U/L (12-78); AST/SGOT 30 U/L (15-37); Alkaline Phosphatase 139 U/L (45-117); BUN Blood Urea Nitrogen 13 mg/dL (7-18); Bicarbonate 26 mmol/L (21-32); Bilirubin Direct < 0.1 mg/dL (0-0.2); Bilirubin Total 0.2 mg/dL (0.2-1.0); Glucose Level 136 mg/dL (74-106); Lipase 65 U/L (73-393); Magnesium 2.2 mg/dL (1.8-2.4); NT PRO-BNP 36 pg/mL (<125); Potassium 3.7 mmol/L (3.5-5.1); Sodium Level 140 mmol/L (136-145); Troponin (Emerg Dept Use Only) < 0.02 ng/mL (0.0-0.045)
--- NOTE | 2021-03-09 06:32 | ER ---
Nurse's Notes [facility] Name: Trung De Age: 51 yrs Sex: Male : 1970 Arrival Date: 03/09/2021 Time: 04:02 Bed 6 Private MD: Diagnosis: Vertigo;Vomiting;Alcohol Consumption Presentation: 03/09 04:33 Chief complaint: Patient states: Reports he woke up this morning with the room ea spinning, pt reported nausea and vomiting. Pt reports he still feels like the room is spinning. Coronavirus screen: At this time, the client does not indicate any symptoms associated with coronavirus-19. Ebola Screen: No symptoms or risks identified at this time. Initial Sepsis Screen: Does the patient meet any 2 criteria? No. Patient's initial sepsis screen is negative. Does the patient have a suspected source of infection? No. Patient's initial sepsis screen is negative. Risk Assessment: Do you want to hurt yourself or someone else? Patient reports no desire to harm self or others. Onset of symptoms was March 09, 2021. 04:33 Method Of Arrival: Ambulatory ea 04:33 Acuity: DIVINE 3 ea Triage Assessment: 04:33 GI: Reports nausea, vomiting. rr5 Historical: - Allergies: 04:36 HYDROCODONE; ea - Home Meds: 04:36 pantoprazole 40 mg Oral TbEC 1 tab once daily [Active]; ea - PMHx: 04:36 Hypothyroidism; Hyperlipidemia; GERD; ea - Immunization history:: Adult Immunizations up to date. - Social history:: Smoking status: Patient denies any tobacco usage or history of. Screenin:35 Abuse screen: Denies threats or abuse. Nutritional screening: No deficits noted. ea Tuberculosis screening: No symptoms or risk factors identified. Fall Risk None identified. Assessment: 04:36 General: Appears uncomfortable, Behavior is appropriate for age. Pain: Denies pain. ea Neuro: Level of Consciousness is awake, alert, obeys commands, Oriented to person, place, time. Respiratory: Airway is patent Respiratory effort is even, unlabored, Respiratory pattern is regular, symmetrical. GI: Abdomen is non-distended. Derm: Skin is pink, warm \T\ dry. 05:30 Reassessment: Patient appears in no apparent distress at this time. Patient is alert, rr5 oriented x 3, equal unlabored respirations, skin warm/dry/pink. 06:25 Reassessment: Patient appears in no apparent distress at this time. Patient is alert, rr5 oriented x 3, equal unlabored respirations, skin warm/dry/pink. Patient states feeling better. Patient states symptoms have improved. 06:40 Reassessment: discharge instruction given and explained without complaints made. rr5 Vital Signs: 04:33 BP 144 / 85; Pulse 79; Resp 18; Temp 97.8; Pulse Ox 98% ; Weight 90.72 kg; Height 5 ft. ea 8 in. (172.72 cm); 05:30 BP 135 / 89; Pulse 75; Resp 16; Pulse Ox 98% ; rr5 06:39 BP 122 / 78; Pulse 70; Resp 19; Pulse Ox 99% ; rr5 04:33 Body Mass Index 30.41 (90.72 kg, 172.72 cm) ea ED Course: 04:02 Patient arrived in ED. bp1 04:16 Aurelio Mullen RN is Primary Nurse. rr5 04:20 Calos Mcclendon MD is Attending Physician. 7 04:35 Triage completed. ea 04:35 Inserted saline lock: 18 gauge in right forearm, using aseptic technique. ea 04:35 Patient has correct armband on for positive identification. Bed in low position. Call ea light in reach. Pulse ox on. NIBP on. 04:35 Arm band placed on right wrist. Patient placed in an exam room, on a stretcher, on ea pulse oximetry. 05:08 XRAY Chest (1 view) In Process Unspecified. EDMS 05:23 CT Head Brain wo Cont In Process Unspecified. EDMS 06:38 No provider procedures requiring assistance completed. IV discontinued, intact, rr5 bleeding controlled, No redness/swelling at site. Pressure dressing applied. Administered Medications: 04:45 Drug: NS 0.9% 1000 ml Route: IV; Rate: 1000 ml; Site: right forearm; rr5 05:30 Follow up: Response: No adverse reaction; IV Status: Completed infusion; IV Intake: rr5 1000ml 04:45 Drug: Zofran (Ondansetron) 4 mg Route: IVP; Site: right forearm; rr5 05:45 Follow up: Response: No adverse reaction rr5 Intake: 05:30 IV: 1000ml; Total: 1000ml. rr5 Outcome: 06:31 Discharge ordered by . mh7 06:39 Discharged to home ambulatory, with family. rr5 06:39 Condition: stable 06:39 Discharge instructions given to patient, Instructed on discharge instructions, follow up and referral plans. medication usage, Demonstrated understanding of instructions, follow-up care, medications, Prescriptions given X 2. 06:41 Patient left the ED. rr5 Signatures: Dispatcher [employer] EDMS Bambi Riggins RN RN ea Roque, Raymond, RN RN rr5 Bridgette Jiménez Maurice, MD MD 7
--- NOTE | 2021-03-09 06:33 | EDPHYS ---
Physician Documentation [facility] Name: Trung De Age: 51 yrs Sex: Male : 1970 Arrival Date: 03/09/2021 Time: 04:02 Bed 6 Private MD: ED Physician Calos Mcclendon HPI: 03/09 04:45 This 51 yrs old Male presents to ER via Ambulatory with complaints of mh7 Nausea/Vomiting, Dizziness. 04:46 The patient presents with dizziness, sense of spinning. Onset: The symptoms/episode mh7 began/occurred today. Context: occurred at home, occurred while the patient was lying down, just prior to the episode the patient experienced no apparent symptoms. Modifying factors: The symptoms are alleviated by holding head still, the symptoms are aggravated by movement of head, changing position. Associated signs and symptoms: Pertinent positives: nausea, vomiting, Pertinent negatives: abdominal pain, agitation, ataxia, blurred vision, chest pain, combativeness, confusion, diaphoresis, focal weakness, head injury, headache, near-syncope, numbness, palpitations, seizure, shortness of breath, syncope, tingling. Severity of symptoms: At their worst the symptoms were moderate today, in the emergency department the symptoms are unchanged. States that he had been drinking beer prior to symptoms starting.. Historical: - Allergies: 04:36 HYDROCODONE; ea - Home Meds: 04:36 pantoprazole 40 mg Oral TbEC 1 tab once daily [Active]; ea - PMHx: 04:36 Hypothyroidism; Hyperlipidemia; GERD; ea - Immunization history:: Adult Immunizations up to date. - Social history:: Smoking status: Patient denies any tobacco usage or history of. ROS: 04:46 Constitutional: Negative for fever, chills, and weight loss, Eyes: Negative for injury, mh7 pain, redness, and discharge, ENT: Negative for injury, pain, and discharge, Neck: Negative for injury, pain, and swelling, Cardiovascular: Negative for chest pain, palpitations, and edema, Respiratory: Negative for shortness of breath, cough, wheezing, and pleuritic chest pain, Back: Negative for injury and pain, : Negative for injury, bleeding, discharge, and swelling, MS/Extremity: Negative for injury and deformity, Skin: Negative for injury, rash, and discoloration, Neuro: Negative for headache, weakness, numbness, tingling, and seizure, Psych: Negative for depression, anxiety, suicide ideation, homicidal ideation, and hallucinations, Allergy/Immunology: Negative for hives, rash, and allergies, Endocrine: Negative for neck swelling, polydipsia, polyuria, polyphagia, and marked weight changes, Hematologic/Lymphatic: Negative for swollen nodes, abnormal bleeding, and unusual bruising. Exam: 04:46 Constitutional: This is a well developed, well nourished patient who is awake, alert, mh7 and in no acute distress. Head/Face: Normocephalic, atraumatic. Eyes: Pupils equal round and reactive to light, extra-ocular motions intact. Lids and lashes normal. Conjunctiva and sclera are non-icteric and not injected. Cornea within normal limits. Periorbital areas with no swelling, redness, or edema. ENT: Nares patent. No nasal discharge, no septal abnormalities noted. Tympanic membranes are normal and external auditory canals are clear. Oropharynx with no redness, swelling, or masses, exudates, or evidence of obstruction, uvula midline. Mucous membranes moist. Neck: Trachea midline, no thyromegaly or masses palpated, and no cervical lymphadenopathy. Supple, full range of motion without nuchal rigidity, or vertebral point tenderness. No Meningismus. Chest/axilla: Normal chest wall appearance and motion. Nontender with no deformity. No lesions are appreciated. Cardiovascular: Regular rate and rhythm with a normal S1 and S2. No gallops, murmurs, or rubs. Normal PMI, no JVD. No pulse deficits. Respiratory: Lungs have equal breath sounds bilaterally, clear to auscultation and percussion. No rales, rhonchi or wheezes noted. No increased work of breathing, no retractions or nasal flaring. Abdomen/GI: Soft, non-tender, with normal bowel sounds. No distension or tympany. No guarding or rebound. No evidence of tenderness throughout. Back: No spinal tenderness. No costovertebral tenderness. Full range of motion. Skin: Warm, dry with normal turgor. Normal color with no rashes, no lesions, and no evidence of cellulitis. MS/ Extremity: Pulses equal, no cyanosis. Neurovascular intact. Full, normal range of motion. Neuro: Awake and alert, GCS 15, oriented to person, place, time, and situation. Cranial nerves II-XII grossly intact. Motor strength 5/5 in all extremities. Sensory grossly intact. Cerebellar exam normal. Normal gait. Psych: Awake, alert, with orientation to person, place and time. Behavior, mood, and affect are within normal limits. Vital Signs: 04:33 BP 144 / 85; Pulse 79; Resp 18; Temp 97.8; Pulse Ox 98% ; Weight 90.72 kg; Height 5 ft. ea 8 in. (172.72 cm); 05:30 BP 135 / 89; Pulse 75; Resp 16; Pulse Ox 98% ; rr5 06:39 BP 122 / 78; Pulse 70; Resp 19; Pulse Ox 99% ; rr5 04:33 Body Mass Index 30.41 (90.72 kg, 172.72 cm) ea MDM: 06:28 Differential diagnosis: cardiac arrhythmia, hypovolemia, idiopathic dizziness, mh7 near-syncope, syncope, vertigo. Data reviewed: vital signs, nurses notes, lab test result(s), cardiac enzymes, CBC, electrolytes, EKG, radiologic studies, CT scan, plain films. Data interpreted: Pulse oximetry: on room air is 98 %. Interpretation: normal. Counseling: I had a detailed discussion with the patient and/or guardian regarding: the historical points, exam findings, and any diagnostic results supporting the discharge/admit diagnosis, the presence of at least one elevated blood pressure reading (>120/80) during this emergency department visit, lab results, radiology results, the need for outpatient follow up, to return to the emergency department if symptoms worsen or persist or if there are any questions or concerns that arise at home. Response to treatment: the patient's symptoms have resolved after treatment, the patient's blood pressure is in an acceptable range, mental status has returned to baseline, the patient no longer shows bradycardia, the patient is not short of breath, the patient is not tachycardic, the patient's pain is gone, the patient's temperature has normalized. 06:31 Patient medically screened. 03/09 04:38 Order name: Basic Metabolic Panel; Complete Time: 06:08 [facility] 03/09 04:38 Order name: CBC with Diff; Complete Time: 06:08 [facility] 03/09 04:38 Order name: LFT's; Complete Time: 06:08 [facility] 03/09 04:38 Order name: Magnesium; Complete Time: 06:08 [facility] 03/09 04:38 Order name: NT PRO-BNP; Complete Time: 06:08 [facility] 03/09 04:38 Order name: PT-INR; Complete Time: 06:08 03/09 04:38 Order name: Troponin (emerg Dept Use Only); Complete Time: 06:08 [facility] 03/09 04:38 Order name: XRAY Chest (1 view) [facility] 03/09 04:38 Order name: ETOH Level; Complete Time: 06:08 [facility] 03/09 04:38 Order name: UDS [facility] 03/09 04:38 Order name: Lipase; Complete Time: 06:08 [facility] 03/09 04:38 Order name: CT Head Brain wo Cont [facility] 03/09 06:33 Order name: Urine Dipstick-Ancillary [facility] 03/09 04:38 Order name: EKG; Complete Time: 04:39 [facility] 03/09 04:38 Order name: Cardiac monitoring; Complete Time: 04:47 [facility] 03/09 04:38 Order name: EKG - Nurse/Tech; Complete Time: 04:47 03/09 04:38 Order name: IV Saline Lock; Complete Time: 04:47 03/09 04:38 Order name: Labs collected and sent; Complete Time: 04:47 03/09 04:38 Order name: O2 Per Protocol; Complete Time: 04:48 03/09 04:38 Order name: O2 Sat Monitoring; Complete Time: 04:48 [facility] 03/09 04:38 Order name: Urine Dipstick-Ancillary (obtain specimen); Complete Time: 04:47 7 Administered Medications: 04:45 Drug: NS 0.9% 1000 ml Route: IV; Rate: 1000 ml; Site: right forearm; rr5 05:30 Follow up: Response: No adverse reaction; IV Status: Completed infusion; IV Intake: rr5 1000ml 04:45 Drug: Zofran (Ondansetron) 4 mg Route: IVP; Site: right forearm; rr5 05:45 Follow up: Response: No adverse reaction rr5 Disposition: 03/09/21 06:31 Discharged to Home. Impression: Vertigo, Vomiting, Alcohol Consumption. - Condition is Stable. - Discharge Instructions: Nausea and Vomiting, Adult, [id number], Vertigo, [id number]. - Prescriptions for Zofran ODT 4 mg Oral tablet,disintegrating - place 1 tablet by TRANSLINGUAL route every 8 hours As needed; 6 tablet. Meclizine 25 mg Oral Tablet - take 1 tablet by ORAL route every 8 hours As needed; 15 tablet. - Medication Reconciliation Form, Thank You Letter, Antibiotic Education, Prescription Opioid Use form. - Follow up: Private Physician; When: 1 - 2 days; Reason: Worsening of condition, Recheck today's complaints, Continuance of care, Re-evaluation by your physician. - Problem is new. - Symptoms have improved. Signatures: Dispatcher [employer] EDMS Bambi Riggins RN RN Aurelio Lizarraga RN RN rr5 Calos Mcclendon MD MD mh7 Corrections: (The following items were deleted from the chart) 06:41 06:31 03/09/2021 06:31 Discharged to Home. Impression: Vertigo; Vomiting; Alcohol rr5 Consumption. Condition is Stable. Forms are Medication Reconciliation Form, Thank You Letter, Antibiotic Education, Prescription Opioid Use. Follow up: Private Physician; When: 1 - 2 days; Reason: Worsening of condition, Recheck today's complaints, Continuance of care, Re-evaluation by your physician. Problem is new. Symptoms have improved. mh7
[2021-03-09 06:34] LABS: Urine Blood Negative (Negative); Urine Glucose Negative (Negative); Urine Protein Negative (Negative); Urine Specific Gravity >=1.030 (1.005-1.030)
[2021-03-09 06:46] VITALS: TEMP 97.8
[2021-03-09 06:47] LABS: Barbiturates NEGATIVE (NEGATIVE); Benzodiazepines NEGATIVE (NEGATIVE); Cocaine NEGATIVE (NEGATIVE); METHAMPHETAM NEGATIVE (NEGATIVE); Methadone NEGATIVE (NEGATIVE); Opiates NEGATIVE (NEGATIVE); Phencyclidine NEGATIVE (NEGATIVE); THC Cannibis NEGATIVE (NEGATIVE)
[2021-03-09 06:49] VITALS: BP 122/78; O2SAT 99
--- NOTE | 2021-03-09 08:32 | RAD REPORT ---
EXAM DESCRIPTION: RAD - Chest Single View - 03/09/2021 5:08 am CLINICAL HISTORY: dizziness COMPARISON: Portable October 2019 TECHNIQUE: AP portable chest image was obtained 03/09/2021 5:08 am . FINDINGS: Lungs are clear. Interstitial pattern matches comparison. Hilar regions are stable. Heart and vasculature are normal. No measurable pleural effusion and no pneumothorax. No acute bony abnorma lity seen. No acute aortic findings suspected. IMPRESSION: No acute cardiopulmonary process. No significant change from comparison study.
--- NOTE | 2021-03-09 22:08 | RAD REPORT ---
EXAM DESCRIPTION: CT - Head Brain Wo Cont - 03/09/2021 6:32 am CLINICAL HISTORY: DIZZINESS COMPARISON: None. TECHNIQUE: CT HEAD WITHOUT IV CONTRAST on 03/09/2021 4:38 AM CDT This exam was performed according to our departmental dose-optimization program, which includes autom ated exposure control, adjustment of the mA and/or kV according to patient size and/or use of iterati ve reconstruction technique. FINDINGS: There is no acute hemorrhage, mass effect or midline shift. Estrada-white differentiation is preserved. There is no hydrocephalus. There is no significant volume loss for age. The calvarium is intact. Orbits and globes are unremarkable. The paranasal sinuses are clear. Mastoid air cells are clear. IMPRESSION: No acute intracranial findings. Electronically signed by: Sarwat Ku MD 03/09/2021 5:26 AM CDT Due to temporary technical issues with the PACS/Fluency reporting system, reports are being signed by the in house radiologists without review as a courtesy to insure prompt reporting. The interpreting radiologist is fully responsible for the content of the report.
== END 2021-03-09 06:41 | disposition home or self-care (01) ==
LOC: ER 03:58
DX: R11.2 Nausea with vomiting, unspecified (principal); F10.920 Alcohol use, unspecified with intoxication, uncomplicated; E78.5 Hyperlipidemia, unspecified; Z88.5 Allergy status to narcotic agent
CPT/HCPCS: 36415; 70450; 71045; 80048; 80076; 80307; 80320; 81003; 83690; 83735; 83880; 84484; 85025; 85610; 93005; 96361; 96374; 99284; J2405; J7030

== ENCOUNTER 2024-02-23 22:16 | Emergency (ER) | payer SELFPAY ==
[2024-02-23] MEDS ORDERED: ONDANSETRON 4 MG/2 ML VIAL ONE (23:12)
[2024-02-23] MEDS ORDERED: FAMOTIDINE 20 MG/2 ML VIAL IV ONE (23:12)
[2024-02-23 23:38] LABS: Absolute Eosinophils 0.1 K/uL (0-0.5); Absolute Lymphocytes (CBC) 1.5 K/uL (0.7-4.9); Absolute Monocytes 0.8 K/uL (0.1-1.3); Absolute Neutrophil 3.5 K/uL (1.8-8.0); Basophils % 0.4 % (0-1.3); Eosinophils % 1.7 % (0-4.4); Hematocrit 43.5 % (39.6-49.0); Hemoglobin 14.7 g/dL (13.6-17.9); Lymphocytes % 25.2 % (15.3-44.8); MCH 29.7 pg (27.0-35.0); MCHC 33.9 g/dL (32.0-36.0); MCV 87.6 fL (80-100); MPV 8.5 fL (7.6-11.3); Monocytes % 13.4 % (3.3-12.3); Neutrophils % 59.3 % (41.7-73.7); Platelets 229 thou/uL (152-406); RBC Red Blood Cell Count 4.96 M/uL (4.33-5.43); Red Cell Distribution Width 13.5 % (12.1-15.2)
[2024-02-23 23:59] LABS: ALT/SGPT 27 U/L (16-61); AST/SGOT 15 U/L (15-37); Albumin 3.4 g/dL (3.4-5.0); Albumin/Globulin Ratio 0.8 (1.1-1.8); Alkaline Phosphatase 124 U/L (45-117); BUN Blood Urea Nitrogen 20 mg/dL (7-18); Bicarbonate 27 mEq/L (21-32); Bilirubin Total 0.3 mg/dL (0.2-1.0); Globulin 4.2 g/dL (2.3-3.5); Glomerular Filtration Rate 73 ml/min (=/>90); Glucose Level 105 mg/dL (74-106); Lipase 30 U/L (13-75); Protein, Total 7.6 g/dL (6.4-8.2); Sodium Level 137 mEq/L (136-145); Troponin High Sensitivity 3.6 pg/mL (<58.9)
[2024-02-24 00:25] LABS: Bilirubin Direct < 0.2 mg/dL (0-0.2); Bilirubin Indirect, Calculated 0.1 mg/dL (0.2-0.8)
--- NOTE | 2024-02-24 01:59 | EDPHYS ---
Physician Documentation [facility] Name: Trung De Age: 54 yrs Sex: Male : 1970 Arrival Date: 02/23/2024 Time: 22:16 Bed 3 Private MD: ED Physician Devon Headley HPI: 02/22 22:37 This 54 yrs old Male presents to ER via Ambulatory with complaints of cp Epigastric Pain. 22:37 The patient presents with abdominal pain in the epigastric area. cp 22:37 Onset: The symptoms/episode began/occurred 3 day(s) ago. The symptoms do not radiate. cp Associated signs and symptoms: Pertinent positives: diarrhea, Pertinent negatives: anorexia, chest pain, constipation, dysuria, fever, shortness of breath. The symptoms are described as waxing/waning. Severity of pain: in the emergency department the pain has improved mildly. Historical: - Allergies: 22:26 HYDROCODONE; bm8 - Home Meds: 22:26 pantoprazole 40 mg Oral TbEC 1 tab once daily [Active]; atorvastatin 20 mg oral tablet bm8 1 tab daily [Active]; levothyroxine 50 mcg capsule 1 cap daily [Active]; omeprazole 20 mg Oral tablet, delayed release (enteric coated) 2 tabs [Active]; magnesium citrate oral solution every day at bedtime [Active]; - PMHx: 22:26 GERD; Hyperlipidemia; Hypothyroidism; bm8 - PSHx: 22:26 None; bm8 - Immunization history:: Adult Immunizations unknown. - Infectious Disease History:: Denies. - Social history:: Smoking status: Patient denies any tobacco usage or history of. ROS: 22:40 Constitutional: Positive for chills, Negative for fever, poor PO intake, cp 22:40 Eyes: Negative for injury, pain, redness, and discharge, cp 22:40 ENT: Negative for drainage from ear(s), ear pain, sore throat, difficulty swallowing, difficulty handling secretions, 22:40 Cardiovascular: Negative for chest pain, edema, palpitations, 22:40 Respiratory: Negative for cough, shortness of breath, wheezing, 22:40 Abdomen/GI: Positive for abdominal pain, diarrhea, of the epigastric area, Negative for vomiting, constipation, anorexia, 22:40 Back: Negative for pain at rest, pain with movement, radiated pain, 22:40 : Negative for urinary symptoms, testicular pain 22:40 Neuro: Negative for altered mental status, dizziness, headache, syncope, weakness, 22:40 All other systems are negative, Exam: 22:45 Constitutional: The patient appears in no acute distress, alert, awake, cp non-diaphoretic, non-toxic, well developed, well nourished, 22:45 Head/Face: Normocephalic, atraumatic. cp 22:45 Eyes: Periorbital structures: appear normal, Conjunctiva: normal, no exudate, no injection, Sclera: no appreciated abnormality, Lids and lashes: appear normal, bilaterally, 22:45 ENT: External ear(s): are unremarkable, Nose: is normal, Mouth: Lips: moist, Oral mucosa: pink and intact, moist, Posterior pharynx: is normal, airway is patent, no erythema, no exudate, 22:45 Chest/axilla: Inspection: normal, Palpation: is normal, no crepitus, no tenderness, 22:45 Cardiovascular: Rate: normal, Rhythm: regular, Edema: is not appreciated, JVD: is not appreciated, 22:45 Respiratory: the patient does not display signs of respiratory distress, Respirations: normal, no use of accessory muscles, no retractions, labored breathing, is not present, Breath sounds: are clear throughout, no decreased breath sounds, no stridor, no wheezing, 22:45 Abdomen/GI: Inspection: abdomen appears normal, Bowel sounds: active, all quadrants, Palpation: soft, in all quadrants, mild abdominal tenderness, in the epigastric area, rebound tenderness, is not appreciated, involuntary guarding, is not appreciated, 22:45 Back: pain, is absent, ROM is normal, 23:45 ECG was reviewed by the Attending Physician. cp Vital Signs: 22:24 BP 116 / 83; Pulse 78; Resp 17; Temp 97; Pulse Ox 100% ; Weight 87.09 kg; Height 5 ft. bm8 8 in. ; Pain /10; 02/23 00:26 BP 117 / 82; Pulse 72; Resp 16; Pulse Ox 100% on R/A; kd3 01:19 BP 119 / 82; Pulse 74; Resp 15; Pulse Ox 97% on R/A; kd3 01:50 BP 118 / 74; Pulse 77; Resp 17; Pulse Ox 98% on R/A; kd3 02/22 22:24 Body Mass Index 29.19 (87.09 kg, 172.72 cm) bm8 02/22 22:24 Pain Scale: Adult bm8 MDM: 02/22 22:37 Patient medically screened. 02/23 01:00 Data reviewed: vital signs. ED course: Patient signed out to me with pending CT ec2 imaging. Patient with a negative ultrasound, plan to follow-up CT scan of the abdomen and pelvis.. 01:01 ED course: Metabolic profile with appropriate electrolytes. CBC is reassuring, no ec2 leukocytosis, LFTs are nonactionable. Troponin is within normal ranges. Lipase within normal ranges. Chest x-ray independently reviewed and interpreted by me, shows no evidence of focal opacity. . 01:58 ED course: CT abdomen pelvis shows enteritis. No evidence of intra-abdominal infection. ec2 Will discharge home. Return precautions given.. 02/22 22:49 Order name: Basic Metabolic Panel; Complete Time: 00:30 02/23 00:30 Interpretation: Normal except: BUN 20; GFR 73. cp 02/22 22:49 Order name: CBC with Diff; Complete Time: 00:01 02/23 00:02 Interpretation: Normal except: MN% 13.4. 02/22 22:49 Order name: LFT's; Complete Time: 00:30 02/23 00:31 Interpretation: Normal except: ALK 124; IBILI, CALC 0.1; GLOB 4.2; A/G 0.8. 02/22 22:49 Order name: Magnesium; Complete Time: 00:30 cp 02/22 22:49 Order name: Troponin HS; Complete Time: 00:30 cp 02/22 22:49 Order name: Lipase; Complete Time: 00:30 cp 02/22 22:49 Order name: XRAY Chest (1 view) 02/22 23:17 Order name: CT Abd/Pelvis - IV Contrast Only cp 02/23 00:31 Order name: US Abdomen Limited 02/22 22:49 Order name: EKG; Complete Time: 22:49 cp 02/22 22:49 Order name: Cardiac monitoring; Complete Time: 23:42 cp 02/22 22:49 Order name: EKG - Nurse/Tech; Complete Time: 23:42 cp 02/22 22:49 Order name: IV Saline Lock; Complete Time: 23:09 cp 02/22 22:49 Order name: Labs collected and sent; Complete Time: 23:09 cp 02/22 22:49 Order name: O2 Per Protocol; Complete Time: 23:09 cp 02/22 22:49 Order name: O2 Sat Monitoring; Complete Time: 23: cp 02/23 00:31 Order name: NPO; Complete Time: 00:32 cp EC/28 23:45 Rate is 73 beats/min. Rhythm is regular. MD interval is normal. QRS interval is normal. cp QT interval is normal. T waves are Inverted in lead aVR. Interpreted by me. Reviewed by me. Administered Medications: 23:18 Drug: Ondansetron IVP 4 mg IVP once; over 2 minutes Route: IVP; Site: right antecubital;4 23:45 Follow up: Response: No adverse reaction; Marked relief of symptoms 4 23:18 Drug: Famotidine IVP 20 mg IVP once; dilute with 10 mL 0.9% NaCl; give over 2 minutes jb4 Route: IVP; Site: right antecubital; 23:45 Follow up: Response: No adverse reaction; Marked relief of symptoms [facility] 02/23 02:15 Drug: Dicyclomine PO 10 mg PO once Route: PO; jb4 02:20 Follow up: Response: Medication administered at discharge. jb4 Disposition: 01:01 I agree with the assessment and plan of care. I reviewed the patient's care provided by 2 Advanced Practice Provider \T\ agree w/ the diagnosis \T\ care plan. I personally saw the pt \T\ performed a substantive portion of the visit, incldng all aspects of the (History/Exam/Medical Decision Making). Disposition Summary: 02/24/24 01:58 Discharge Ordered Notes: Location: Home ec2 Condition: Stable ec2 Diagnosis - Other viral enteritis ec2 Followup: ec2 - With: Private Physician - When: - Reason: Re-evaluation by your physician Discharge Instructions: - Discharge Summary Sheet ec2 - Viral Gastroenteritis, Adult, [id number] ec2 Forms: - Medication Reconciliation Form ec2 - Antibiotic Education ec2 - Prescription Opioid Use ec2 - Patient Portal Instructions ec2 - Leadership Thank You Letter ec2 Prescriptions: - dicyclomine 10 mg Oral capsule - take 1 capsule ORAL route 3 times per day; 30 capsule; Refills: 0, Product ec2 Selection Permitted Signatures: Dispatcher [employer] EDMS Steven Vieira PA PA cp Bryson, James, RN RN jb4 Devon Headley MD MD ec2 David Gotti, MICHAEL RN bm8 Corrections: (The following items were deleted from the chart) 02/22 22:49 22:49 BASIC METABOLIC PANEL+C.LAB.BRZ ordered. EDMS EDMS 22:49 22:49 CBC+H.LAB.BRZ ordered. EDMS EDMS 22:49 22:49 HEPATIC FUNCTION+C.LAB.BRZ ordered. EDMS EDMS 22:49 22:49 MAGNESIUM+C.LAB.BRZ ordered. EDMS EDMS 22:49 22:49 Troponin High Sensitivity+C.LAB.BRZ ordered. EDMS EDMS 22:49 22:49 LIPASE+C.LAB.BRZ ordered. EDMS EDMS
--- NOTE | 2024-02-24 01:59 | ER ---
Nurse's Notes [facility] Name: Trung De Age: 54 yrs Sex: Male : 1970 Arrival Date: 02/23/2024 Time: 22:16 Bed 3 Private MD: Diagnosis: Other viral enteritis Presentation: 02/22 22:24 Chief complaint: Patient states: I have epigastric pain since Thursday, diarrhea started bm8 thursday. Coronavirus screen: At this time, the client does not indicate any symptoms associated with coronavirus-19. Ebola Screen: Patient negative for fever greater than or equal to 101.5 degrees Fahrenheit, and additional compatible Ebola Virus Disease symptoms Patient denies exposure to infectious person. Patient denies travel to an Ebola-affected area in the 21 days before illness onset. No symptoms or risks identified at this time. Initial Sepsis Screen: Does the patient meet any 2 criteria? No. Patient's initial sepsis screen is negative. Does the patient have a suspected source of infection? No. Patient's initial sepsis screen is negative. Risk Assessment: Do you want to hurt yourself or someone else? Patient reports no desire to harm self or others. Onset of symptoms was February 20, 2024. 22:24 Method Of Arrival: Ambulatory bm8 22:24 Acuity: DIVINE 3 bm8 Triage Assessment: 22:26 General: Appears in no apparent distress. uncomfortable, Behavior is calm, cooperative, bm8 appropriate for age. Pain: Complains of pain in epigastric area Pain does not radiate. Pain currently is 9 out of 10 on a pain scale. Quality of pain is described as burning, aching. EENT: No deficits noted. No signs and/or symptoms were reported regarding the EENT system. GI: No deficits noted. Abdomen is flat, non-distended, Bowel sounds present X 4 quads. Abdomen is tender to palpation in epigastric area Reports upper abdominal pain, epigastric pain. Historical: - Allergies: 22:26 HYDROCODONE; bm8 - Home Meds: 22:26 pantoprazole 40 mg Oral TbEC 1 tab once daily [Active]; atorvastatin 20 mg oral tablet bm8 1 tab daily [Active]; levothyroxine 50 mcg capsule 1 cap daily [Active]; omeprazole 20 mg Oral tablet, delayed release (enteric coated) 2 tabs [Active]; magnesium citrate oral solution every day at bedtime [Active]; - PMHx: 22:26 GERD; Hyperlipidemia; Hypothyroidism; bm8 - PSHx: 22:26 None; bm8 - Immunization history:: Adult Immunizations unknown. - Infectious Disease History:: Denies. - Social history:: Smoking status: Patient denies any tobacco usage or history of. Screenin/29 01:20 [facility] ED Fall Risk Assessment (Adult) History of falling in the last 3 months, kd3 including since admission No falls in past 3 months (0 pts) Confusion or Disorientation No (0 pts) Intoxicated or Sedated No (0 pts) Impaired Gait No (0 pts) Mobility Assist Device Used No (0 pt) Altered Elimination No (0 pt) Score/Fall Risk Level 0 - 2 = Low Risk Oriented to surroundings, Maintained a safe environment. Abuse screen: Denies threats or abuse. Denies injuries from another. Nutritional screening: No deficits noted. Tuberculosis screening: No symptoms or risk factors identified. Assessment: 00:27 General: Appears in no apparent distress. Behavior is calm, cooperative. Neuro: Level kd3 of Consciousness is awake, alert, obeys commands, Oriented to person, place, time, situation. Cardiovascular: Patient's skin is warm and dry. Respiratory: Airway is patent Trachea midline Respiratory effort is even, unlabored, Respiratory pattern is regular, symmetrical. 01:19 Reassessment: No changes from previously documented assessment. Patient and/or family kd3 updated on plan of care and expected duration. Pain level reassessed. Patient is alert, oriented x 3, equal unlabored respirations, skin warm/dry/pink. 02:18 Reassessment: Patient appears in no apparent distress at this time. Patient and/or jb4 family updated on plan of care and expected duration. Pain level reassessed. Patient is alert, oriented x 3, equal unlabored respirations, skin warm/dry/pink. Vital Signs: 02/22 22:24 BP 116 / 83; Pulse 78; Resp 17; Temp 97; Pulse Ox 100% ; Weight 87.09 kg; Height 5 ft. bm8 8 in. ; Pain 9/10; 02/23 00:26 BP 117 / 82; Pulse 72; Resp 16; Pulse Ox 100% on R/A; kd3 01:19 BP 119 / 82; Pulse 74; Resp 15; Pulse Ox 97% on R/A; kd3 01:50 BP 118 / 74; Pulse 77; Resp 17; Pulse Ox 98% on R/A; kd3 02/22 22:24 Body Mass Index 29.19 (87.09 kg, 172.72 cm) bm8 02/22 22:24 Pain Scale: Adult bm8 ED Course: 02/22 22:18 Patient arrived in ED. jj6 22:21 Steven Vieira PA is PHCP. cp 22:21 Devon Headley MD is Attending Physician. cp 22:26 Triage completed. bm8 22:26 Arm band placed on left wrist. bm8 23:10 Troponin HS Sent. jb4 23:10 Magnesium Sent. jb4 23:10 LFT's Sent. jb4 23:10 CBC with Diff Sent. jb4 23:10 Basic Metabolic Panel Sent. jb4 23:10 Lipase Sent. jb4 23:34 XRAY Chest (1 view) In Process Unspecified. EDMS 02/23 00:26 Ekta Christianson, RN is Primary Nurse. kd3 01:06 US Abdomen Limited In Process Unspecified. EDMS 01:12 CT Abd/Pelvis - IV Contrast Only In Process Unspecified. EDMS 01:20 Patient has correct armband on for positive identification. Provided Education on: NPO. kd3 02:18 No provider procedures requiring assistance completed. IV discontinued, intact, jb4 bleeding controlled, No redness/swelling at site. Pressure dressing applied. Administered Medications: 02/22 23:18 Drug: Ondansetron IVP 4 mg IVP once; over 2 minutes Route: IVP; Site: right antecubital;jb4 23:45 Follow up: Response: No adverse reaction; Marked relief of symptoms jb4 23:18 Drug: Famotidine IVP 20 mg IVP once; dilute with 10 mL 0.9% NaCl; give over 2 minutes jb4 Route: IVP; Site: right antecubital; 23:45 Follow up: Response: No adverse reaction; Marked relief of symptoms jb4 02/23 02:15 Drug: Dicyclomine PO 10 mg PO once Route: PO; jb4 02:20 Follow up: Response: Medication administered at discharge. jb4 Medication: 01:20 VIS not applicable for this client. kd3 Outcome: 01:58 Discharge ordered by . ec2 02:18 Discharged to home ambulatory, jb4 02:18 Condition: stable 02:18 Discharge instructions given to patient, Instructed on discharge instructions, follow up and referral plans. no drinking with medication, medication usage, Demonstrated understanding of instructions, follow-up care, medications, Prescriptions given X 1, 02:21 Patient left the ED. jb4 Signatures: Dispatcher [employer] EDMS Steven Vieira PA PA cp Bryson, James, RN RN jb4 Cora [id number] Ekta Christianson, RN RN kd3 Devon Headley MD MD ec2 David Gotti, RN RN bm8
[2024-02-24] MEDS ORDERED: DICYCLOMINE HCL 10 MG CAP ONE (02:06)
[2024-02-24 02:41] VITALS: BP 118/74; TEMP 97; O2SAT 98
--- NOTE | 2024-02-24 10:41 | RAD REPORT ---
EXAM DESCRIPTION: Abdomen Pelvis W Contrast CLINICAL HISTORY: EPIGASTRIC PAIN COMPARISON: 11/16/2019 TECHNIQUE: CT of the abdomen and pelvis performed following the administration of IV contrast. No or al contrast. This exam was performed according to our departmental dose-optimization program, which i ncludes automated exposure control, adjustment of the mA and/or kV according to patient size and/or u se of iterative reconstruction technique. FINDINGS: Lung Bases: Bilateral dependent atelectasis. Abdomen: Liver: The liver has normal contour and density. No suspicious mass. Gallbladder: No calcified gallstones. No significant biliary dilatation. Spleen, Pancreas, and Adrenal Glands: The spleen, pancreas, and adrenal glands are unremarkable. Kidneys: No suspicious mass. No urinary tract calculi. No hydronephrosis. Vasculature: The aorta and IVC have normal caliber and position. The portal vein is patent. The pro ximal visceral and renal arteries are patent. Stomach: The stomach and duodenum have normal course. Other: No free intraperitoneal air. Sterile prominent lymph nodes in the right lower quadrant, no nspecific. These may be reactive or can be seen with mesenteric adenitis. No bulky lymphadenopathy. Pelvis: Bladder: Urinary bladder is unremarkable. Bowel: No dilated loops of large or small bowel. There is some mild stranding adjacent to small b owel loops in the right lower quadrant. There may be some mild wall thickening. Appendix: Normal appendix. Pelvis: No suspicious mass. Trace free pelvic fluid. Bones: No destructive bone lesions identified. IMPRESSION: 1. Mild stranding adjacent to small bowel loops in the right lower quadrant with some possible mild wall thickening. Findings could reflect enteritis. 2. Trace free pelvic fluid. Electronically signed by: Eileen Lopez MD 02/24/2024 01:54 AM CDT Due to temporary technical issues with the PACS/Fluency reporting system, reports are being signed by the in house radiologist without review as a courtesy to ensure prompt reporting. The interpreting r adiologist is fully responsible for the content of the report.
--- NOTE | 2024-02-24 12:06 | RAD REPORT ---
EXAM DESCRIPTION: US Abdomen Limited, Gallbladder CLINICAL HISTORY: The patient is 54 years old and is Male; EPIGASTRIC PAIN TECHNIQUE: Real-time ultrasound of the right upper quadrant with image documentation. COMPARISON: No relevant prior studies available. FINDINGS: GALLBLADDER: The gallbladder is contracted. No gallbladder wall thickening or pericholec ystic fluid is noted. There is a negative sonographic Haas sign. COMMON BILE DUCT: Unremarkable as visualized. No stones. No dilation. IMPRESSION: Unremarkable sonographic appearance of the gallbladder. Electronically signed by: Deann Mustafa MD 02/24/2024 01:46 AM CDT RP Due to temporary technical issues with the PACS/Fluency reporting system, reports are being signed by the in house radiologist without review as a courtesy to ensure prompt reporting. The interpreting r adiologist is fully responsible for the content of the report.
--- NOTE | 2024-02-24 12:08 | RAD REPORT ---
EXAM DESCRIPTION: XR Chest 1 View AP CLINICAL HISTORY: Epigastric pain COMPARISON: None TECHNIQUE: Chest 1 View AP FINDINGS: Trachea midline. Heart size and pulmonary vessels within normal limits. Small linear inferolateral left lung field opacities. No consolidation, mass, or significant pulmonary edema. No significant pleural effusion or pneumothorax. No free air in upper abdomen. Bones unremarkable. IMPRESSION: Minimal, inferolateral, left lung field subsegmental atelectasis or scar/fibrosis. Electronically signed by: Luis Antonio Patterson MD 02/23/2024 11:51 PM CDT RP Due to temporary technical issues with the PACS/Fluency reporting system, reports are being signed by the in house radiologist without review as a courtesy to ensure prompt reporting. The interpreting r adiologist is fully responsible for the content of the report.
== END 2024-02-24 02:21 | disposition home or self-care (01) ==
LOC: ER 22:16
DX: K52.89 Other specified noninfective gastroenteritis and colitis (principal); E78.5 Hyperlipidemia, unspecified; E03.9 Hypothyroidism, unspecified; K21.9 Gastro-esophageal reflux disease without esophagitis; Z88.5 Allergy status to narcotic agent
CPT/HCPCS: 36415; 71045; 74177; 76705; 80048; 80076; 83690; 83735; 84484; 85025; 96374; 96375; 99284; J2405; Q9967